=== PATIENT | male | born 1985 ===

== ENCOUNTER 2023-01-14 10:38 | Outpatient (AMB) | payer OTHER, SELFPAY ==
--- NOTE | 2023-01-14 10:38 | A.OFFPC_ITS ---
Vital Signs 01/14/23 10:40 Height 6 ft 2 in Weight 233 lb BMI 29.9 BP 124/80 Blood Pressure Location Rt brachial Position Sitting Pulse 82 Pulse Source Pulse Oximeter Pulse Oximetry (%) 98 Oxygen Delivery Method Room Air Intake Visit Reasons: Health Care Assistant Request PE Intake Note: Patient is a new patient with concern of pain in his stomach for about a year, sometimes he gets diarrhea, he states. He states when his stomach hurts, his urine smells when his stomach hurts. Allergies No Known Allergies Allergy (Verified 01/14/23 10:44) Tobacco use date assessed: 01/14/23 Dental Screening Dental Screen Date: 01/14/23 Did you have a dental visit in the last 12 months?: Yes Did you have a dental problem in the last 6 months where you did not have access to dental care?: No Was dental information given to patient?: Patient has dentist HPI Health Care Assistant Request PE HPI Details New patient Prior PCP:?[place], [place] Last office visit/CPE: None Acute issue(s): Abdominal pain -RUQ pain associated with dehydration Chest pain PMHx: HLD, HTN, Back Pain SurgHx: None FHx: Mom: HTN, Dad: BP, HLD, EtOH SocHx: Nonsmoker. Smokless tobacco. 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 Patient Tobacco Use Status: Former Tobacco user e-Cigarette/Vaping Use: Never Used service: Yes Current occupational status: employed [employer] GI Reports abdominal pain Physical exam (Primary Care) Vital Signs: Last Vital Signs Pulse 82 01/14/23 10:40 BP 124/80 01/14/23 10:40 Pulse Ox 98 01/14/23 10:40 Oxygen Delivery Method Room Air 01/14/23 10:40 BMI result Body Mass Index 29.9 Tobacco/Smoking Status: Tobacco use Status Tobacco use date assessed 01/14/23 01/14/23 10:45 Patient Tobacco Use Status Former Tobacco user 01/14/23 10:45 e-Cigarette/Vaping Use Never Used 01/14/23 10:45 Assessment and Plan Assessment & Plan (1) Hyperlipidemia: Code(s): E78.5 - Hyperlipidemia, unspecified Plan: On?atorvastatin Check?lipid (2) Back pain: Code(s): M54.9 - Dorsalgia, unspecified Plan: Left?scapular?and?subscapular?back?pain This?appears?to?be?muscular?and?wraps?around?chest?to?upper?left?chest. Modifiable?painMo?modifiable?paindifiable pain that will likely benefit from PT (3) Chest pain: Code(s): R07.9 - Chest pain, unspecified Plan: Sharp?modifiable?pain?related?to?his?left?scapular?pain. PT as above?physical?therapy?as?above (4) Hypertension: Code(s): I10 - Essential (primary) hypertension Plan: Blood?pressure?is?controlled Goal?is?less?than?140/90 Continue?current?medication?regimen (5) Alcohol abuse: Code(s): F10.10 - Alcohol abuse, uncomplicated (6) Abdominal pain: Code(s): R10.9 - Unspecified abdominal pain Plan: Chronic?right?upper?quadrant?abdominal?pain?associated?with?foods?and?hydration? status Maintain?good?hydration Keep?his?symptoms?diary Try?soluble?fiber Patient?also?notes?that?some?cheeses?may?be?a?problem?and?he?will?try?lactase enzyme?as?well Referred?to?GI (7) Laboratory exam ordered as part of routine general medical examination: Code(s): Z00.00 - Encounter for general adult medical examination without abnormal findings Plan: Check?labs Orders: Orders Comprehensive [place]. Panel Fast Today Z00.00 - Encounter for general adult medical examination without abnormal findings CT NG by PCR Today Z11.3 - Encounter for screening for infections with a predominantly sexual mode of transmission Syphilis Screen Today Z11.3 - Encounter for screening for infections with a predominantly sexual mode of transmission UA and rflx microscopic Today Z00.00 - Encounter for general adult medical examination without abnormal findings TSH reflex Free T4 Today Z00.00 - Encounter for general adult medical examination without abnormal findings PT Evaluation and Treatment Today M54.9 - Dorsalgia, unspecified Hepatitis B,C Profile Today Z11.3 - Encounter for screening for infections with a predominantly sexual mode of transmission HIV Ab/Ag Today Z11.3 - Encounter for screening for infections with a predominantly sexual mode of transmission Lipid Panel Today Z00.00 - Encounter for general adult medical examination without abnormal findings Microalbumin, Random (w Creat) Today I10 - Essential (primary) hypertension Complete Blood Count Auto Diff Today Z00.00 - Encounter for general adult medical examination without abnormal findings Referrals Addiction Medicine Referral F10.10 - Alcohol abuse, uncomplicated, Z81.1 - Family history of alcohol abuse and dependence Gastroenterology Referral R10.9 - Unspecified abdominal pain Medications: New atorvastatin 20 mg PO DAILY 90 days 90 tabs 3RF calcium polycarbophil (FiberCon) 625 mg PO DAILY 30 tabs 2RF 30 days lisinopril 30 mg PO DAILY 90 days 90 tabs 3RF Coding Level of Care Code New Pt Level 3 (25086) Diagnoses Hyperlipidemia E78.5 Back pain M54.9 Chest pain R07.9 Hypertension I10 Alcohol abuse F10.10 Abdominal pain R10.9 Laboratory exam ordered as part of routine general medical examination Z00.00
[2023-01-14 10:40] VITALS: BP 124/80; PULSE 82; O2SAT 98; BMI 29.9
== END 2023-01-14 11:18 | disposition home or self-care (01) ==
LOC: HO.HMGFM 10:39
PROVIDERS: PCP Family Medicine; Visit Provider Family Medicine
DX: E78.5 Hyperlipidemia, unspecified (principal); M54.9 Dorsalgia, unspecified; R07.9 Chest pain, unspecified; I10 Essential (primary) hypertension; F10.10 Alcohol abuse, uncomplicated; R10.9 Unspecified abdominal pain; Z00.00 Encounter for general adult medical examination without abnormal findings
CPT/HCPCS: 99203

== ENCOUNTER 2023-01-18 14:21 | Outpatient (AMB) | payer OTHER, SELFPAY ==
--- NOTE | 2023-01-18 14:24 | MHC.OFFVIS ---
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 Pt reports he has a who is that does not live with him. Pt reports he has friends for a support system, and has regular transportation. 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 Pt reports he drinks daily, reports he alternately drinks beer or hard alcohol. Hard alcohol he drinks 1/3 of a fifth of vodka nightly Beer he reports he drinks 12-18 nightly. Denies history of complicated withdrawal, denies need to drink in the morning to stop shakes. Reports he drinks nightly due to poor sleep, and that his goal is to not drink everyday. Pt hoping to one day resume drinking socially. Pt reports using tobacco dip once or twice nightly when he drinks. Denies any other substance use. 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 Last stretch was for a month in October. Denies treatment history, has never been to detox, residential, or used MAT before. Has no providers, declining any referrals at this time. Maybe down the road once I back off the drinking Denies mental health history, or inpatient psychiatric hospitalizations. Endorses history of passive self harm thoughts, attributes those to times when he and his were not getting along. Denies current thoughts of self harm. Medical History: Patient reports he is currently being treated for HTN and hyperlipidemia. Reports chronic pain to his back and joints that he attributes to the . States he is going to be starting PT. [facility] Social History Housing: Other Housing Other:: [place] Patient Tobacco Use Status: Former Tobacco user e-Cigarette/Vaping Use: Never Used service: Yes Current occupational status: employed [employer] Reports as per HPI and Reports no additional complaints Psych Reports abnormal sleep pattern Physical Exam Vital Signs: Last Vital Signs Pulse 93 01/18/23 14:33 BP 122/84 01/18/23 14:33 Pulse Ox 98 01/18/23 14:33 Oxygen Delivery Method Room Air 01/18/23 14:33 Const General: cooperative, healthy appearing and no acute distress Nutritional Appearance: average body habitus and well nourished Orientation/consciousness: patient oriented x3 Limitations: no limitations Resp Effort & Inspection: normal respiratory effort Skin General skin exam: no rashes or lesions noted Neuro General: patient oriented x3 Psych Appearance: grossly normal and well kempt Mental Status: mental status grossly normal Speech and movement: Normal speech and movement present Attitude: cooperative Assessment & Plan Assessment & Plan (1) Alcohol use disorder, moderate, dependence: Code(s): F10.20 - Alcohol dependence, uncomplicated Plan: Discussed DANIELE with patient and provided resource sheet about medications to patient. Discussed harm reduction. Discussed alcolhol withdrawal, symptoms and timeline, provided educational handout addressing alcohol withdrawal. Discussed how important it is not to abruptly stop drinking. Plan for pt to start measuring and recording daily alcohol intake for review at next visit. Trazodone once daily at bedtime as needed for sleep, discussed risks of mixing sleeping meds and alcohol. Naltrexone once daily. Follow up in one week to check in. Plan reviewed with GLENROY Marroquin Medications: New naltrexone Take half a tab daily for three days, then increase to one tab daily. 50 mg PO DAILY 30 tabs 0RF trazodone 50 mg PO BEDTIME PRN 14 tabs 0RF sleep Coding Level of Care Code New Pt Level 4 (82415) Diagnoses Alcohol use disorder, moderate, dependence F10.20
[2023-01-18 14:33] VITALS: BP 122/84; PULSE 93; O2SAT 98
== END 2023-01-18 16:29 | disposition home or self-care (01) ==
PROVIDERS: PCP Family Medicine; Visit Provider Nurse Practitioner Family
DX: F10.20 Alcohol dependence, uncomplicated (principal)
CPT/HCPCS: 99204

== ENCOUNTER → 2023-01-18 14:21 | Outpatient (BNVA) | payer OTHER, SELFPAY | PROVIDERS: PCP Family Medicine; Visit Provider Nurse Practitioner Psychiatric/Mental Health ==

== ENCOUNTER 2023-01-26 14:00 | Outpatient (AMB) | payer OTHER, SELFPAY ==
--- NOTE | 2023-01-26 14:02 | MHC.OFFVIS ---
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 Reports he is doing well with cutting down his alcohol use, has been measuring his daily intake. States when he started last week he was at 2.5 cups, and is now down to under 1 cup of vodka daily. States he has been trying to stick to the same kind of alcohol, only had beer once since beginning the medications and felt as though it made the beer taste like iron. States he has only been taking 25 mg of naltrexone, and feels as if this dose works well for him. Pt wishes to continue the PO naltrexone while he tapers of alcohol, is not interested in the vivitrol injection at this time. Reports he is working on his relationship with his , and that this has been good for him. [facility] Social History Housing: Other Housing Other:: [facility] Patient Tobacco Use Status: Former Tobacco user e-Cigarette/Vaping Use: Never Used service: Yes Current occupational status: employed [employer] Reports as per HPI and Reports no additional complaints Physical Exam Vital Signs: Last Vital Signs Pulse 74 01/26/23 14:07 BP 110/70 01/26/23 14:07 Pulse Ox 97 01/26/23 14:07 Oxygen Delivery Method Room Air 01/26/23 14:07 Const General: cooperative, healthy appearing and no acute distress Resp Effort & Inspection: normal respiratory effort Psych Appearance: grossly normal and well kempt Mental Status: mental status grossly normal Speech and movement: Normal speech and movement present Affect: normal affect Attitude: cooperative Thought content: Normal thought content present Judgement: Good judgement present (Psych) Assessment & Plan Assessment & Plan (1) Alcohol use disorder, moderate, dependence: Comment: Continue naltrexone 25mg Discussed sleep hygiene Discussed risk reduction, and reminded pt not to decrease his use too quickly. Pt to complete his labwork before next visit. Follow up one week. Code(s): F10.20 - Alcohol dependence, uncomplicated Coding Level of Care Code Est Pt Level 4 (76747) Diagnoses Alcohol use disorder, moderate, dependence F10.20
[2023-01-26 14:07] VITALS: BP 110/70; PULSE 74; O2SAT 97
== END 2023-01-26 14:35 | disposition home or self-care (01) ==
PROVIDERS: PCP Family Medicine; Visit Provider Nurse Practitioner Family
DX: F10.20 Alcohol dependence, uncomplicated (principal)
CPT/HCPCS: 99214

== ENCOUNTER → 2023-01-26 14:00 | Outpatient (BNVA) | payer OTHER, SELFPAY | PROVIDERS: PCP Family Medicine; Visit Provider Nurse Practitioner Family | DX: F10.20 Alcohol dependence, uncomplicated (principal) | CPT/HCPCS: 99212 ==

== ENCOUNTER 2023-01-27 12:19 | Outpatient (REF) | payer OTHER, SELFPAY ==
[2023-01-27 14:42] LABS: Appearance Urine Turbid; Color Urine Yellow; Glucose Urine UA Negative (Negative); Leukocyte Esterase Urine Negative (Negative); Nitrite Urine Negative (Negative); PH 5.5 (5.0-9.0); Specific Gravity - Urine 1.015 (1.005-1.025); Urine Blood Negative (Negative); Urine Ketones Negative (Negative); Urine Protein Negative (Neg-Trace)
[2023-01-27 14:56] LABS: MANUAL DIFF FLAG NO
[2023-01-27 15:04] LABS: Basophils Absolute Auto 0.1 X10*3/uL (0.0-0.2); Basophils Percent Auto 0.8 % (0-2); Eosinophils Absolute Auto 0.2 X10*3/uL (0.0-0.4); Eosinophils Percent Auto 2.5 % (0-4); Hematocrit 42.2 % (42.0-52.0); Hemoglobin 14.4 g/dl (14.0-18.0); Imm Gran Abs Auto 0.02 X10*3/uL (0.00-0.03); Imm Gran Pct Auto 0.3 % (0.0-0.4); Lymphocytes Absolute Auto 2.2 X10*3/uL (1.2-4.9); Lymphocytes Percent Auto 31.3 % (20-40); Mean Corpuscular HGB Conc 34.1 g/dl (31.0-36.0); Mean Corpuscular Hemoglobin 28.8 pg (27.0-33.0); Mean Corpuscular Volume 84.4 fL (80.0-98.0); Mean Platelet Volume 10.2 fL (9.4-12.4); Monocytes Absolute Auto 0.9 X10*3/uL (0.1-1.2); Monocytes Percent Auto 13.3 % (2-11); Neutrophils Absolute Auto 3.7 x10*3/uL (2.0-8.3); Neutrophils Percent Auto 51.8 % (45-73); Platelet Count 216 X10*3/uL (160-400); Red Cell Distribution Width 13.1 % (11.0-16.0); White Blood Count 7.1 X10*3/uL (4.8-10.8)
[2023-01-27 15:32] LABS: Alanine Aminotransferase 25 U/L (0-40); Albumin Level 4.5 g/dL (3.5-5.0); Alkaline Phosphatase 70 U/L (39-117); Anion Gap 15 (12-20); Aspartate Amino Transferase 21 U/L (5-37); Bilirubin Total 0.7 mg/dL (0.0-1.0); Blood Urea Nitrogen 11 mg/dL (9-16); Calcium 9.4 mg/dL (8.4-10.2); Carbon Dioxide 27 mmol/L (22-29); Chloride 101 mmol/L (96-108); Cholesterol 178 mg/dL (<200); Creatinine Urine 133.32 mg/dL; Estimated Glomerular Filt Rate > 60; Glucose Fasting 84 mg/dL (60-99); HDL Cholesterol 55 mg/dL (>40); LDL Cholesterol Calculated 88 mg/dL (<100); Microalbum/Creatinine Ratio Ur 7.5 ug/mg cr (<30); Potassium 4.7 mmol/L (3.3-5.1); Sodium 138 mmol/L (135-145); Total Protein 7.7 g/dL (6.5-8.0); Triglycerides 177 mg/dL (<150)
[2023-01-27 15:51] LABS: TSH reflex Free T4 0.96 uIU/mL (0.32-4.0)
[2023-01-28 04:15] LABS: Syphilis Screen Nonreactive (Nonreactive)
[2023-01-28 04:48] LABS: HBS Num1 > 1000.00 mIU/mL (0-7.99); HBc Num1 0.04 S/CO (0.00-0.79); HBsAGNum1 0.38 S/CO (0.00-0.99); HIV AB/AG Nonreactive (Nonreactive); HIV Num 1 0.04 S/CO (0.00-0.99); Hepatitis B Core Antibody Nonreactive (Nonreactive); Hepatitis B Surface Antigen Negative (Negative); ~HepC Num1 0.06 S/CO (0.00-0.79); ~Hepatitis B Surface Antibody REACTIVE (Nonreactive); ~Hepatitis C Antibody Nonreactive (Nonreactive)
== END 2023-01-27 12:20 | disposition home or self-care (01) ==
LOC: HO.WFDLDS 12:19
PROVIDERS: Visit Provider Family Medicine
DX: Z00.00 Encounter for general adult medical examination without abnormal findings (principal); I10 Essential (primary) hypertension; Z20.2 Contact with and (suspected) exposure to infections with a predominantly sexual mode of transmission
CPT/HCPCS: 36415; 80053; 80061; 81003; 82043; 82570; 84443; 85025; 86704; 86706; 86780; 86803; 87340; 87389

== ENCOUNTER 2023-01-28 14:00 | Outpatient (RCR) | payer OTHER, SELFPAY ==
--- NOTE | 2023-01-25 15:05 | MHC.PT.EP ---
[facility] [place] Office [place] [facility] [place] Office [address] [phone] F: [phone] F: [phone] F: [phone] F: [phone] Physical Therapy Plan of Care Date of Evaluation: 01/25/23 Date of Surgery: none Diagnosis: low back pain Assessment: Patient is a 37 year old R handed male who presents with s/s consistent with low back pain. 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 Patient past medical history is unremarkable. Current impairments include pain, posture, ROM, flexibility, strength, activity tolerance and functional mobility. Functional limitations include decreased ability to bend, lift, sleep, turn and rotate. Patient is motivated with good rehab potential. Skilled PT will address impairments and functional limitations in order to achieve goals. Frequency and Duration: The patient will be seen 2x/week for 5 weeks Short Term Goals: I with HEP - 2 weeks AROM 100% Rotation - 3 weeks TTP absent - 3 weeks Petrographer Goals: Return to all work duties pain free - 5 weeks Oswestry 10% or less - 5 weeks Able to sleep pain free - 5 weeks Treatment Plan: Modalities to reduce pain, spasms and effusion. Manual therapy to restore motion and function. Therapeutic exercise to improve strength and flexibility. Neuromuscular re-education for posture and balance. Therapeutic activities to return to functional activities of daily living. Electronically signed by: Eliecer Sánchez, PT Please sign and return to therapist. Thank you for your referral.
--- NOTE | 2023-04-20 08:36 | MHC.PT.DC ---
[facility] [place] Office [place] Office [place] Office [address] Frantz Pena [address] [phone] F: [phone] F: [phone] F: [phone] F: [phone] Physical Therapy Discharge Report Diagnosis: low back pain Date of Surgery: none Date of Evaluation: 01/25/23 Date of Discharge: 02/24/23 Treatments to Date: 2 Cancellations to Date: No Shows to Date: Discharge Status: Patient Elected to Stop Discharge Summary: Pt elected to stop after 2nd appt. 01/28/23: pt progressing well with skilled PT. improved tolerance to activity, STM, and stretching. IFC to finish. assess response and progress accordingly. issue HEP when ready. Patient is a 37 year old R handed male who presents with s/s consistent with low back pain. 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 Patient past medical history is unremarkable. Current impairments include pain, posture, ROM, flexibility, strength, activity tolerance and functional mobility. Functional limitations include decreased ability to bend, lift, sleep, turn and rotate. Patient is motivated with good rehab potential. Skilled PT will address impairments and functional limitations in order to achieve goals. Electronically signed by: Eliecer Sánchez, PT Please sign and return to therapist. Thank you for your referral.
== END 2023-04-20 08:38 | disposition home or self-care (01) ==
LOC: HO.PTCHIC 14:00
PROVIDERS: PCP Family Medicine; Visit Provider Family Medicine
DX: M54.9 Dorsalgia, unspecified (principal)
CPT/HCPCS: 97014; 97110; 97140; 97161

== ENCOUNTER 2023-03-10 15:16 | Outpatient (REF) | payer OTHER, SELFPAY ==
[2023-03-10 18:02] LABS: C Reactive Protein < 0.10 mg/dL (< or = 0.50); Lipase 10 U/L (8-78)
[2023-03-10 18:38] LABS: Folate 11.4 ng/mL (> or = 4.0); Vitamin B12 420 pg/mL (200-900)
[2023-03-16 18:35] LABS: Vitamin D 25-OH, D2 <4 ng/mL; Vitamin D 25-OH, D3 24 ng/mL; Vitamin D 25-OH, Total 24 ng/mL (30-100)
== END 2023-03-10 15:17 | disposition home or self-care (01) ==
LOC: HO.LAB 15:16
PROVIDERS: PCP Family Medicine; Visit Provider Nurse Practitioner Family
DX: I10 Essential (primary) hypertension (principal); R10.10 Upper abdominal pain, unspecified; K58.2 Mixed irritable bowel syndrome; R14.0 Abdominal distension (gaseous); E55.9 Vitamin D deficiency, unspecified; E78.5 Hyperlipidemia, unspecified
CPT/HCPCS: 36415; 82306; 82607; 82746; 83690; 86140; 99202

== ENCOUNTER 2023-03-10 15:16 | Outpatient (AMB) | payer OTHER, SELFPAY ==
--- NOTE | 2023-03-10 15:20 | A.OFFVIS_ITS ---
Intake Vital Signs 03/10/23 15:24 Height 6 ft 2 in Weight 231 lb 7.766 oz BMI 29.7 BP 150/83 H Blood Pressure Location Lt brachial Position Sitting Pulse 70 Intake Visit Reasons: Abdominal Pains Intake Note: Marcelo presents in the office as a new patient for abdominal pains. CC: He states that he has pains in his stomach and he mostly has diarrhea. No blood when he has a BM. Special Events Coordinator Required: No Allergies No Known Allergies Allergy (Verified 03/10/23 15:25) HPI Abdominal Pains HPI Details 37-year-old male with past medical histo ry of alcohol use, hypertension, hyperlipidemia is here today for initial consultation. Patient was sent to us for evaluation of his GI concerning symptoms. Patient reports right upper quadrant and left upper quadrant pain. Patient states that this pain is not associated that to meals usually happens 1-2 hours after he eats. Patient also reports that he will wake up in the morning having this pain. Patient reports that he moves his bowels usually his bowels are more on the loose side. He believes that he is not constipated. Patient reports that he does not empty his bowels completely when he has a 1st bowel movement. Patient goes to the bathroom couple times a day with soft stools. Patient tried fiber supplement before, however reports that it was not helpful. Did not notice much of a difference. Patient does not have any diet restrictions or limitations. Patient has history ETOH use, however patient has not been drinking alcohol for the last couple of months. Patient denies any nausea or vomiting. Denies any dyspepsia, dysphagia or odynophagia. Denies any melena, hematochezia, unintentional weight loss or ribbon like stools. Patient not aware of family history of Crohn's or ulcerative colitis. [facility] Social History Housing: Other Housing Other:: [facility] Patient Tobacco Use Status: Former Tobacco user e-Cigarette/Vaping Use: Never Used service: Yes Current occupational status: employed [employer] Denies weight gain and Denies weight loss ENT Reports no additional complaints, Denies dysphagia and Denies odynophagia Card Reports no additional complaints Resp Reports no additional complaints GI Denies abdominal pain, Denies belching, Denies melena, Denies bloating, Denies change in bowel habits, Denies dysphagia, Denies excessive flatus, Denies dyspepsia, Denies heartburn, Denies diarrhea, Denies loose stools, Denies nausea, Denies odynophagia and Denies vomiting Reports no additional complaints Musc Reports no additional complaints Neuro Reports no additional complaints Psych Reports no additional complaints Endo Reports no additional complaints Physical Exam Vital Signs: Last Vital Signs Pulse 70 03/10/23 15:24 BP 150/83 H 03/10/23 15:24 BMI result Body Mass Index 29.7 Const General: healthy appearing, no acute distress and well developed Nutritional Appearance: obese Orientation/consciousness: patient oriented x3 HEENT Head: Yes normal to inspection, Yes normocephalic and Yes atraumatic Face and sinus: Yes normal facial exam Mouth: Normal oral and palatal mucosa present Throat: Yes posterior oropharynx normal, Yes tonsils normal and Yes uvula midline Eyes General: appearance normal, both eyes and all related structures Neck Neck: Yes normal visual inspection, Yes full ROM and Yes trachea midline Thyroid: Thyroid normal Resp Effort & Inspection: normal respiratory effort, able to speak in complete sentences, no tracheal deviation and symmetric chest movement Auscultation: clear to auscultation bilaterally Cardio Rate: regular rate GI Inspection: Yes normal to inspection, No distended and Yes obesity Palpation (GI): Soft to palpation, not firm, nontender and No hepatosplenomegaly present Auscultation: normal bowel sounds General: Yes no CVA tenderness Back/Spine/Pelvis Back: no CVA tenderness Skin General skin exam: elasticity normal, turgor normal and dry skin Neuro General: patient oriented x3 Psych Appearance: grossly normal Mental Status: mental status grossly normal Affect: normal affect Assessment & Plan Assessment & Plan (1) Abdominal pain: Code(s): R10.9 - Unspecified abdominal pain Qualifiers: Abdominal location: upper abdomen, unspecified Qualified Code(s): R10.10 - Upper abdominal pain, unspecified (2) IBS (irritable bowel syndrome): Code(s): K58.9 - Irritable bowel syndrome without diarrhea Qualifiers: Irritable bowel syndrome type: with both diarrhea and constipation Qualified Code(s): K58.2 - Mixed irritable bowel syndrome (3) Abdominal bloating: Code(s): R14.0 - Abdominal distension (gaseous) Plan Will rule out malabsorption, pancreatitis. If CRP positive patient will be sent to check for fecal calprotectin to rule out IBD. Will send patient for ultrasound, however I do not believe that this is related to food so unlikely biliary colic, cholelithiasis, cholecystitis. For possible chronic pancreatitis due to history of alcohol use, will check lipase. Most likely patient does not empty his bowels completely. Symptoms happen 1-2 hours after eating with abdominal bloating. Possibility gas trapping in splenic and hepatic flexure. Patient will need to move his bowels completely periods start Citrucel in the morning and senna in the evening. Low FODMAP diet discussed with patient. That could also contribute to his symptoms due to for mentation processes with high FODMAP food. List of food recommended as well as a stool food to avoid given to patient. I will see patient in 3 months, sooner on as needed basis. Patient is agreeable to this plan and verbalizes understanding of instructions. He was given the opportunity to ask questions all questions answered. Thank you for allowing me to participate in his care Orders: Orders Vitamin B12 and Folate Today R19.7 - Diarrhea, unspecified Vitamin D 25-OH (D2 and D3) Today E55.9 - Vitamin D deficiency, unspecified C Reactive Protein Today K58.9 - Irritable bowel syndrome without diarrhea US abdomen complete Today R10.9 - Unspecified abdominal pain Lipase Today R10.9 - Unspecified abdominal pain Medications: New methylcellulose (laxative) (Citrucel) take it with full glass of water 500 mg PO DAILY 30 tabs 2RF K59.00 - Constipation, unspecified sennosides (Natural Senna Laxative) 17.2 mg (2 x 8.6 mg) PO BEDTIME 60 tabs 3RF constipation K59.00 - Constipation, unspecified Discontinued calcium polycarbophil (FiberCon) Discontinued Reason: Doctor's Order 625 mg PO DAILY 30 days 30 tabs 2RF Coding Level of Care Code New Pt Level 4 (52015) Diagnoses Pain of upper abdomen R10.10 Abdominal location: upper abdomen, unspecified Irritable bowel syndrome with both constipation and diarrhea K58.2 Irritable bowel syndrome type: with both diarrhea and constipation Abdominal bloating R14.0 Time Spent (min) 45 Comment 30 minutes spent with patient and additional 15 minutes spent reviewing his records
[2023-03-10 15:24] VITALS: BP 150/83; PULSE 70; BMI 29.7
== END 2023-03-10 15:55 | disposition home or self-care (01) ==
PROVIDERS: PCP Family Medicine; Visit Provider Nurse Practitioner Family
DX: R10.10 Upper abdominal pain, unspecified (principal); K58.2 Mixed irritable bowel syndrome; R14.0 Abdominal distension (gaseous)
CPT/HCPCS: 99204

== ENCOUNTER 2023-03-19 11:08 | Outpatient (AMB) | payer OTHER, SELFPAY ==
--- NOTE | 2023-03-19 11:18 | A.OFFPC_ITS ---
Vital Signs 03/19/23 11:19 Height 6 ft 2 in Weight 234 lb 6 oz BMI 30.1 BP 132/82 Blood Pressure Location Lt brachial Position Sitting Respiration 16 Pulse 85 Pulse Source Pulse Oximeter Pulse Oximetry (%) 97 Oxygen Delivery Method Room Air Intake Visit Reasons: CPE with f/u labs and health maint. Intake Note: Patient is here for physical and labs review and health maintenance. Patient is c/o tinnitis in both ears for 2 weeks. Allergies No Known Allergies Allergy (Verified 03/19/23 11:21) Medication List - Last Reconciled 03/19/23 by Aj Monroy MD atorvastatin 40 mg PO DAILY cholecalciferol (vitamin D3) 50 mcg PO DAILY 90 days lisinopril 30 mg PO DAILY 90 days methylcellulose (laxative) (Citrucel) 500 mg PO DAILY naltrexone 50 mg PO DAILY sennosides (Natural Senna Laxative) 17.2 mg (2 x 8.6 mg) PO BEDTIME trazodone 50 mg PO BEDTIME PRN Tobacco use date assessed: 03/19/23 HPI CPE with f/u labs and health maint. HPI Details 37 y/o male presents for a CPE with f/u labs and health maintenance. Labs were drawn 01/27/23. Reviewed labs with pt. Triglycerides 177. TC 178. LDL 88. HDL 55. He is on artovastatin 40mg daily. Vitamin D low at 24 ng/mL. Blood pressure today 132/82. He is on lisinopril 30mg daily. Pt reports tinnitus bilateral ears. [facility] Social History Housing: Other Housing Other:: [facility] Patient Tobacco Use Status: Former Tobacco user e-Cigarette/Vaping Use: Never Used service: Yes Current occupational status: employed Cognitive needs: No Hearing needs: No Vision needs: Yes (Patient wears glasses.) Questionnaire PHQ-9 Over the last 2 weeks, how often have you been bothered by any of the following problems? 1. Little interest or pleasure in doing things: not at all 2. Feeling down, depressed, or hopeless: not at all 3. Trouble falling or staying asleep, or sleeping too much: not at all 4. Feeling tired or having little energy: not at all 5. Poor appetite or overeating: not at all 6. Feeling bad about yourself - or that you are a failure or have let yourself or your family down: not at all 7. Trouble concentrating on things, such as reading the newspaper or watching television: not at all 8. Moving or speaking so slowly that other people could have noticed. Or the opposite - being so fidgety or restless that you have been moving around a lot more than usual: not at all 9. Thoughts that you would be better off or of hurting yourself in some way: not at all Total score: 0 Depression Screening Interpretation: Negative Depression Screening Done: Yes Source: Developed by Drs. Stephon Hammond, Krystyna Sands, Billy Terry and colleagues, with an educational dex from [employer]. Thrive Questionnaire Date Thrive assessed: 03/19/23 I am a: Patient What is your living situation today?: I have a steady place to live Within the past 12 months, did the food you bought not last and you didn't have the money to get more?: Never true Within the past 12 months, did you worry whether your food would run out before you got money to buy more?: Never true Do you have trouble paying for medicines?: No Do you have trouble getting transportation to medical appointments?: No Do you have trouble paying your heating and electricity bill?: No Do you have trouble taking care of your child, family member or friend?: No Do you have trouble with day-to-day activities such as bathing, preparing meals, shopping, managing finances, etc.?: No Are you currently unemployed and looking for a job?: No Are you interested in more education?: No AUDIT C Alcohol Use Questionnaire (AUDIT-C) 1. How often do you have a drink containing alcohol?: 2-4 times a month 2. How many drinks containing alcohol do you have on a typical day when you are drinking?: 1 or 2 3. How often do you have six or more drinks on one occasion?: Never Total Score: 2 JENNIFER-7 AMB Questionnaire JENNIFER-7 Date JENNIFER - 7 assessed: 03/19/23 Feeling nervous, anxious, or on edge: 0 = Not at all Not being able to stop or control worryin = Not at all Worrying too much about different things: 0 = Not at all Trouble relaxin = Not at all Being so restless that it is hard to sit still: 0 = Not at all Becoming easily annoyed or irritable: 0 = Not at all Feeling afraid as if something awful might happen: 0 = Not at all Total JENNIFER-7 score (0-4 normal; 5-9 mild; 10-14 moderate; 15-21 severe): 0 Source: Developed by Drs. Stephon Hammond, Krystyna Sands, Billy Terry and colleagues, with an educational dex from [employer]. Review of Systems Const Denies chills, Denies fatigue, Denies fever(s), Denies headache(s) and Denies weakness Eyes Denies change in vision ENT Denies dizziness, Denies headache(s), Denies hearing loss, Denies nasal congestion, Denies sinus pain, Denies sinus pressure and Denies sore throat Card Denies chest pain, Denies lightheadedness, Denies dyspnea and Denies other (palpitations) Resp Denies cough, Denies dyspnea and Denies wheezing GI Denies abdominal pain, Denies melena, Denies hematochezia, Denies change in bowel habits, Denies dyspepsia and Denies nausea Denies hematuria and Denies dysuria Musc Denies abnormal gait, Denies myalgias, Denies arthralgias, Denies numbness and Denies tingling Skin/Breast Denies rash, Denies unusual bruising and Denies wounds Neuro Denies abnormal gait, Denies dizziness, Denies headache(s), Denies memory loss, Denies numbness, Denies Sensory deficit (Neuro), Denies tingling and Denies weakness Psych Denies anxiety, Denies depression and Denies memory loss Endo Denies cold intolerance, Denies fatigue, Denies heat intolerance, Denies polydipsia and Denies polyuria Alfonso/Lymph Denies easy bleeding and Denies easy bruising Aller/Immun Denies wheezing Physical exam (Primary Care) Vital Signs: Last Vital Signs Pulse 85 03/19/23 11:19 Resp 16 03/19/23 11:19 BP 132/82 03/19/23 11:19 Pulse Ox 97 03/19/23 11:19 Oxygen Delivery Method Room Air 03/19/23 11:19 BMI result Body Mass Index 30.1 Tobacco/Smoking Status: Tobacco use Status Tobacco use date assessed 03/19/23 03/19/23 11:24 Patient Tobacco Use Status Former Tobacco user 03/19/23 11:24 e-Cigarette/Vaping Use Never Used 03/19/23 11:24 PHQ-9: PHQ-9 Score PHQ-9: Total score 0 03/19/23 13:07 Depression Screening Interpretation: Negative Thrive Assessment: Date of Thrive Assessment Date Thrive assessed 03/19/23 03/19/23 11:31 Const General: no acute distress, well developed, alert and awake Nutritional Appearance: well nourished Orientation/consciousness: patient oriented x3 HENMT Head: Yes normocephalic and Yes atraumatic Ears: hearing grossly normal bilaterally and TM's normal bilaterally General nose exam: Normal external nose present and Normal nares present Mouth: Normal oral and palatal mucosa present and moist mucous membranes Teeth and gingiva: dentition normal Throat: Yes posterior oropharynx normal Eyes General: appearance normal, both eyes and all related structures Pupils: Equal, round and reactive pupils present and Pupil accommodation reflex normal EOM: EOMs intact bilaterally Neck Neck: Yes normal visual inspection, Yes no lymphadenopathy and Yes trachea midline Thyroid: Thyroid normal Carotids: no bruits Lymphatic: no lymphadenopathy noted Chest Chest palpation & inspection: normal inspection of the chest Resp Effort & Inspection: normal respiratory effort Auscultation: clear to auscultation bilaterally Cardio Rate: regular rate Rhythm: regular rhythm Heart sounds: S1 normal heart sound present, S2 normal heart sound present, no gallops, no murmurs and no rubs Bruits: no abdominal aortic bruits and no carotid bruits GI Palpation (GI): No Abdominal aortic bruit present, Soft to palpation, nontender, No hepatosplenomegaly present and No Rebound tenderness present Auscultation: normal bowel sounds General: Yes no CVA tenderness Back/Spine/Pelvis Back: no CVA tenderness Cervical Spine: cervical ROM normal and No Cervical spine tenderness Thoracic/Lumbar Spine: thoraco-lumbar ROM normal, No pain with thoraco-lumbar ROM, No thoracic spinal tenderness and No lumbar spinal tenderness Skin Lesions: no lesions Rashes: no rashes Trauma: no lacerations or abrasions Wounds: no wounds Nails: normal Neuro General: patient oriented x3 Cranial nerves: Yes Equal, round and reactive pupils present Cognition (Neuro): normal cognition Gait exam (Neuro): Normal gait present Motor exam (neuro): 5/5 motor strength present throughout Sensory Exam: No Sensory deficit (Neuro) Deep tendon reflexes (DTR's): Right patellar reflex intensity grade: 2+ and Left patellar reflex intensity grade: 2+ Extrem General: Yes normal to inspection and No edema Psych Appearance: grossly normal Affect: normal affect Attitude: cooperative Thought process: Normal thought process present Assessment and Plan Assessment & Plan (1) Adult general medical exam: Code(s): Z00.00 - Encounter for general adult medical examination without abnormal findings Plan: 37-year-old?male?presents?for?complete?physical?exam Encouraged?healthy?diet?with?active?lifestyle?and?plenty?of?exercise (2) Low vitamin D level: Code(s): R79.89 - Other specified abnormal findings of blood chemistry Plan: Start?vitamin-D?supplement (3) Alcohol use disorder, moderate, dependence: Code(s): F10.20 - Alcohol dependence, uncomplicated Plan: Followed?by?GI?and?also?addiction?medicine (4) Back pain: Code(s): M54.9 - Dorsalgia, unspecified Plan: Had?been?improving?with?physical?therapy. Continue?physical?therapy (5) Hyperlipidemia: Code(s): E78.5 - Hyperlipidemia, unspecified Plan: Mild?elevated?triglycerides.??His?other?lipids?are?controlled?on?atorvastatin Encouraged?diet?low?in?saturated?fats?and?cholesterol (6) Hypertension: Code(s): I10 - Essential (primary) hypertension Plan: Blood?pressure?is?controlled?on?lisinopril?30?mg?daily Continue?current?medication (7) Tinnitus: Code(s): H93.19 - Tinnitus, unspecified ear Plan: Referred?to?[facility]?for?audiology Orders: Referrals Audiology Referral H93.19 - Tinnitus, unspecified ear Medications: New cholecalciferol (vitamin D3) 50 mcg PO DAILY 90 caps 1RF 90 days Coding Level of Care Code Tele Est Pt Level 3 (12006) Est Pt Prev Care 18-39y(35216) Diagnoses Adult general medical exam Z00.00 Low vitamin D level R79.89 Alcohol use disorder, moderate, dependence F10.20 Back pain M54.9 Hyperlipidemia E78.5 Hypertension I10 Tinnitus H93.19
[2023-03-19 11:19] VITALS: BP 132/82; PULSE 85; RESP 16; O2SAT 97; BMI 30.1
== END 2023-03-19 13:38 | disposition home or self-care (01) ==
PROVIDERS: PCP Family Medicine; Visit Provider Family Medicine
DX: Z00.00 Encounter for general adult medical examination without abnormal findings (principal); R79.89 Other specified abnormal findings of blood chemistry; F10.20 Alcohol dependence, uncomplicated; M54.9 Dorsalgia, unspecified; E78.5 Hyperlipidemia, unspecified; I10 Essential (primary) hypertension; H93.19 Tinnitus, unspecified ear
CPT/HCPCS: 99395

== ENCOUNTER 2023-04-08 12:56 | Outpatient (AMB) | payer OTHER, SELFPAY ==
--- NOTE | 2023-04-08 13:08 | MHC.AM.SUB ---
Intake Vital Signs 04/08/23 13:09 BP 128/78 Blood Pressure Location Rt brachial Position Sitting Pulse 92 Pulse Oximetry (%) 97 Oxygen Delivery Method Room Air Intake Visit Reasons: MAT Visit Allergies No Known Allergies Allergy (Verified 03/19/23 11:21) HPI MAT Visit HPI Details Pt presents for AUD treatment and follow up He reports significant decrease in alcohol intake since his last visit, he only has 1 beer if he drinks and reports he has drank maybe 7-8 days in the past 2.5 months. Last drink on (1 beer). He identifies stress as one of his typical triggers. He reports sleep has gotten much better and he is having an easier time falling asleep than previously. He feels as though the naltrexone affects his appetite in the sense of a meat aversion when he takes it regularly. T/w counseledpt to try taking half a pill to see if that alleviates his meat aversion. Patient reports he is overall feeling well, shared with his that he is working on his recovery and he reports she has been supportive. Denies any other concerns today. [facility] Social History Housing: Other Housing Other:: [facility] Patient Tobacco Use Status: Former Tobacco user e-Cigarette/Vaping Use: Never Used service: Yes Current occupational status: employed Cognitive needs: No Hearing needs: No Vision needs: Yes (Patient wears glasses.) Review of Systems Const Reports as per HPI Physical Exam Vital Signs: Last Vital Signs Pulse 92 04/08/23 13:09 BP 128/78 04/08/23 13:09 Pulse Ox 97 04/08/23 13:09 Oxygen Delivery Method Room Air 04/08/23 13:09 Const General: cooperative, healthy appearing and no acute distress Resp Effort & Inspection: normal respiratory effort Psych Appearance: grossly normal Mental Status: mental status grossly normal Speech and movement: Normal speech and movement present Affect: normal affect Attitude: cooperative Assessment & Plan Assessment & Plan (1) Alcohol use disorder, moderate, dependence: Code(s): F10.20 - Alcohol dependence, uncomplicated Plan: -Continue taking naltrexone, encouraged pt to take 25mg on the days he takes to improve appetite -Follow up in 4 weeks Medications: Refilled naltrexone Take half a tab daily for three days, then increase to one tab daily. 50 mg PO DAILY 30 tabs 1RF Coding Level of Care Code Est Pt Level 3 (21613) Diagnoses Alcohol use disorder, moderate, dependence F10.20
[2023-04-08 13:09] VITALS: BP 128/78; PULSE 92; O2SAT 97
== END 2023-04-08 13:21 | disposition home or self-care (01) ==
PROVIDERS: PCP Family Medicine; Visit Provider Nurse Practitioner Family
DX: F10.20 Alcohol dependence, uncomplicated (principal)
CPT/HCPCS: 99213

== ENCOUNTER → 2023-04-08 12:56 | Outpatient (BNVA) | payer OTHER, SELFPAY | PROVIDERS: PCP Family Medicine; Visit Provider Nurse Practitioner Family | DX: F10.20 Alcohol dependence, uncomplicated (principal) | CPT/HCPCS: 99212 ==

== ENCOUNTER 2023-06-01 12:29 | Outpatient (REF) | payer OTHER, SELFPAY | END 2023-06-01 12:30 | disposition home or self-care (01) | LOC: HO.SH 12:29 | PROVIDERS: Visit Provider Family Medicine | DX: H93.19 Tinnitus, unspecified ear (principal) | CPT/HCPCS: 92557; 92567; 92625 ==

== ENCOUNTER 2023-06-09 13:19 | Outpatient (AMB) | payer OTHER, SELFPAY ==
--- NOTE | 2023-06-09 13:37 | A.OFFVIS_ITS ---
Intake Vital Signs 06/09/23 13:49 Height 6 ft 2 in Weight 246 lb 0.574 oz BMI 31.6 BP 140/82 H Blood Pressure Location Lt brachial Position Sitting Pulse 65 Intake Visit Reasons: 3 month follow up Intake Note: Patient is seen in office for 3 month follow up visit, following IBS. Pt c/o: continued RUQ pain, been eating fiber with relief, some diarrhea after eating fatty foods, LUQ is doing well, denies nausea, vomit, constipation, denies any other GI issues Screening Specialist Required: No Accompanied by: Self / Same As Patient Allergies No Known Allergies Allergy (Verified 06/09/23 13:47) HPI 3 month follow up HPI Details LAST VISIT: Abdominal pain IBS (irritable bowel syndrome) Abdominal bloating Plan Will rule out malabsorption, pancreatitis. If CRP positive patient will be sent to check for fecal calprotectin to rule out IBD. Will send patient for ultrasound, however I do not believe that this is related to food so unlikely biliary colic, cholelithiasis, cholecystitis. Possible chronic pancreatitis due to history of alcohol use, will check lipase. Most likely patient does not empty his bowels completely. Symptoms happen 1-2 hours after eating with abdominal bloating. Possibility gas trapping in splenic and hepatic flexure. Patient will need to move his bowels completely periods start Citrucel in the morning and senna in the evening. Low FODMAP diet discussed with patient. That could also contribute to his symptoms due to for mentation processes with high FODMAP food. List of food recommended as well as a stool food to avoid given to patient. I will see patient in 3 months, sooner on as needed basis. Patient is agreeable to this plan and verbalizes understanding of instructions. He was given the opportunity to ask questions all questions answered. ? Thank you for allowing me to participate in his care Orders Orders Vitamin B12 and Folate Today R19.7 Vitamin D 25-OH (D2 and D3) Today E55.9 C Reactive Protein Today K58.9 US abdomen complete Today R10.9 Lipase Today R10.9 Medications New methylcellulose (laxative) (Citrucel) take it with full glass of water 500 mg PO DAILY 30 tabs 2RF K59.00 sennosides (Natural Senna Laxative) 17.2 mg (2 x 8.6 mg) PO BEDTIME 60 tabs 3RF constipation K59.00 Discontinued calcium polycarbophil (FiberCon) Discontinued Reason: Doctor's Order 625 mg PO DAILY 30 days 30 tabs 2RF TODAY'S VISIT Patient is here today for follow-up and to discuss lab results. Patient had normal labs except for mildly low vitamin-D. PCP send script for vitamin-D supplement. Patient has not gone for ultrasound yet. Will inquire today and see if we can schedule a. Patient will be leaving to go to [place] for 3 months end of this month for paternity leave. Patient denies any nausea or vomiting. His symptoms of acid reflux are better. Continues to have right upper quadrant discomfort postprandially. Occasional abdominal bloating depending on what he eats. Occasional dyspepsia without dysphagia or odynophagia. Denies melena, hematochezia, unintentional weight loss or ribbon like stools. [facility] Social History Housing: Other Housing Other:: [facility] Patient Tobacco Use Status: Former Tobacco user e-Cigarette/Vaping Use: Never Used service: Yes Current occupational status: employed Cognitive needs: No Hearing needs: No Vision needs: Yes (Patient wears glasses.) Review of Systems Const Denies weight gain and Denies weight loss ENT Reports no additional complaints, Denies dysphagia and Denies odynophagia Card Reports no additional complaints Resp Reports no additional complaints GI Reports abdominal pain (RUQ, occasional), Denies belching, Denies melena, Denies bloating, Denies change in bowel habits, Denies dysphagia, Denies excessive flatus, Denies dyspepsia, Denies heartburn, Denies diarrhea, Denies loose stools, Denies nausea, Denies odynophagia and Denies vomiting Reports no additional complaints Musc Reports no additional complaints Neuro Reports no additional complaints Psych Reports no additional complaints Endo Reports no additional complaints Physical Exam Vital Signs: Last Vital Signs Pulse 65 03/06/24 13:49 BP 140/82 H 06/09/23 13:49 BMI result Body Mass Index 31.6 Const General: healthy appearing, no acute distress and well developed Nutritional Appearance: obese Orientation/consciousness: patient oriented x3 Resp Effort & Inspection: normal respiratory effort, able to speak in complete sentences, no tracheal deviation and symmetric chest movement Auscultation: clear to auscultation bilaterally Cardio Rate: regular rate GI Inspection: Yes normal to inspection, No distended and Yes obesity Palpation (GI): Soft to palpation, not firm, nontender and No hepatosplenomegaly present Auscultation: normal bowel sounds General: Yes no CVA tenderness Back/Spine/Pelvis Back: no CVA tenderness Skin General skin exam: elasticity normal, turgor normal and dry skin Neuro General: patient oriented x3 Psych Appearance: grossly normal Mental Status: mental status grossly normal Results Reviewed Results Reviewed: Laboratory Tests 03/10/23 16:06 C-Reactive Protein < 0.10 Lipase 10 Vitamin B12 420 25-OH Vitamin D Total 24 L Folate 11.4 Assessment & Plan Assessment & Plan (1) Abdominal pain: Code(s): R10.9 - Unspecified abdominal pain Qualifiers: Abdominal location: upper abdomen, unspecified Qualified Code(s): R10.10 - Upper abdominal pain, unspecified (2) IBS (irritable bowel syndrome): Code(s): K58.9 - Irritable bowel syndrome without diarrhea Qualifiers: Irritable bowel syndrome type: with constipation Qualified Code(s): K58.1 - Irritable bowel syndrome with constipation (3) Abdominal bloating: Code(s): R14.0 - Abdominal distension (gaseous) (4) Constipation: Code(s): K59.00 - Constipation, unspecified Qualifiers: Constipation type: slow transit constipation Qualified Code(s): K59.01 - Slow transit constipation Plan Continue current diet. Avoid alcohol. Continue taking senna and Citrucel daily. Increase fluid intake and activity to promote better bowel motility. Avoid food that are high in fat and fried. Will call and schedule patient for ultrasound. I will see him in 6 months, sooner on as needed basis. Patient is agreeable to this plan and verbalizes understanding of instructions. He was given the opportunity to ask questions and all questions answered. Thank you for allowing me to participate in his care Medications: Refilled cholecalciferol (vitamin D3) 50 mcg PO DAILY 90 days 90 caps 1RF Coding Level of Care Code Est Pt Level 4 (93168) Diagnoses Pain of upper abdomen R10.10 Abdominal location: upper abdomen, unspecified Irritable bowel syndrome with constipation K58.1 Irritable bowel syndrome type: with constipation Abdominal bloating R14.0 Slow transit constipation K59.01 Constipation type: slow transit constipation Time Spent (min) 35 Comment 20 minutes spent with patient and additional 15 minutes spent reviewing his records
[2023-06-09 13:49] VITALS: BP 140/82; PULSE 65; BMI 31.6
== END 2023-06-09 14:08 | disposition home or self-care (01) ==
PROVIDERS: PCP Family Medicine; Visit Provider Nurse Practitioner Family
DX: R10.10 Upper abdominal pain, unspecified (principal); K58.1 Irritable bowel syndrome with constipation; R14.0 Abdominal distension (gaseous); K59.01 Slow transit constipation
CPT/HCPCS: 99214

== ENCOUNTER → 2023-06-09 13:19 | Outpatient (BNVA) | payer OTHER, SELFPAY | PROVIDERS: PCP Family Medicine; Visit Provider Nurse Practitioner Family | DX: K58.1 Irritable bowel syndrome with constipation (principal); K59.01 Slow transit constipation; R10.10 Upper abdominal pain, unspecified; R14.0 Abdominal distension (gaseous) | CPT/HCPCS: 99212 ==

== ENCOUNTER 2023-06-16 10:31 | Outpatient (REF) | payer OTHER, SELFPAY ==
--- NOTE | ~2023-06-16 | US_ITS ---
EXAMINATION: US ABDOMEN COMPLETE CLINICAL INFORMATION: Abdominal pain. COMPARISON: None available. TECHNIQUE: Real-time imaging of the abdominal viscera. FINDINGS: PANCREAS: The head and the body of the pancreas is homogeneous in echotexture. The tail is obscured by overlying gas. ABDOMINAL AORTA: The proximal, mid, and distal segments are normal in caliber. INFERIOR VENA CAVA: Visualized portions are normal. LIVER: Normal. The liver is normal in size. The liver contour is normal. Parenchymal echogenicity is normal. No focal hepatic lesion. There is no intrahepatic biliary duct dilatation seen. GALLBLADDER: The gallbladder is contracted. The gallbladder wall thickness is 0.4 cm. Patient had coughing femur prior to the exam. COMMON BILE DUCT: Normal in caliber measuring 0.39 cm in diameter. RIGHT KIDNEY: There is anechoic cyst midpole measuring 0.9 x 1.0 x 1.0 cm. No additional lesions seen. No hydronephrosis. No renal calculi or caliectasis seen. The Kidney measures 11.4 cm in maximum dimension. LEFT KIDNEY: There is normal cortical thickness No renal calculi there is small echogenic stone in the lower pole measuring 0.4 x 0.3 x 0.4 seen. No caliectasis or hydronephrosis seen. The kidney measures 11.5. cm in maximum dimension. SPLEEN: Normal. The spleen measures 12.0 cm in maximum dimension. FREE FLUID: None. US/US abdomen complete IMPRESSION: 1. Small anechoic cyst midpole right kidney. 2. Small echogenic stone lower pole left kidney without caliectasis or hydronephrosis. 3. Rest of the abdominal ultrasound is unremarkable.
== END 2023-06-16 10:32 | disposition home or self-care (01) ==
LOC: HO.HMGCX 10:31
PROVIDERS: PCP Family Medicine; Visit Provider Nurse Practitioner Family
DX: R10.9 Unspecified abdominal pain (principal)
CPT/HCPCS: 76700

== ENCOUNTER 2024-04-19 08:02 | Outpatient (AMB) | payer OTHER, SELFPAY ==
--- OUTSIDE RECORDS SUMMARY | 2024-04-19 08:05 | XMS_ITS | Continuity of Care Document ---
Author Name [facility] Organization [facility] Care Team Providers Care Supervisor Cutting Department Name Role Phone [facility] Unavailable Unavailable Problems Combined list of problems from Department of Defense and Veterans Affairs facilities. It does not include entries that were removed or entered in error. 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 DoD Essential (primary) hypertension Active 7 Condition DoD Myopia, [facility] for examination of eyes and vision with abnormal findings Active Condition [facility] Nicotine dependence, chewing tobacco, uncomplicated Active Condition DoD Other seasonal allergic rhinitis Active Condition DoD Aftercare Following Surgery Of Sense Organs Inactive Condition DoD postsurgical state of eye and adnexa Inactive Condition DoD refractive error Inactive Condition DoD visit for: preoperative exam Inactive Condition [facility] routine ophthalmological exam Inactive Condition DoD ganglion left hand Active Condition DoD lower back pain Active Condition DoD Patient Education - Injury Prevention Inactive Condition [facility] visit for: ears / hearing exam Inactive Condition [facility] visit for: administrative purpose Inactive Condition DoD astigmatism regular Inactive Condition D oD refractive error - myopia Inactive Condition [facility] visit for: new patient eye exam Active Condition [facility] visit for: services physical Inactive Condition DoD Vaccines Prophylactic Need Inactive Condition DoD Need For Vaccination Typhoid Inactive Condition DoD Need For Vaccination Hepatitis B Inactive Condition DoD skin disorders appendage hair follicle folliculitis Inactive Condition DoD Need For Prophylactic Antibiotics Inactive Condition DoD acute bronchitis Inactive Condition [facility] Medications Combined list of outpatient medications from Department of Defense and Veterans Affairs facilities.Medications provided include 1) outpatient medications from the last 15 months, and 2) patient-reported medications. Medication Details Route Status Patient Instructions Prescription Expires Prescription Number Last Dispense Date Ordering Provider Order Date Order Qty Source ATORVASTATI N CALCIUM (atorvastat in calcium), 40 MG, TABLET, ORAL, [facility] PHARMA I, 1000 ea. BOTTLE Cancele d [id number] : 2023 0 Pharmac y Data Transac tion Service Facilit y Cepacol Sore Throat Pain Relief Honey Lemon 15 mg-2.6 mg mucous membrane lozenge 1 lozenge( s), Oral, every 2 hr, PRN sore throat, # 16 EA, 0 total refill(s ), Acute, 04/16/22 11:00:00 PM JIG FITTER, Pharmacy : [facility] Oral (given by mouth) Complet ed 04/17/2022 16.0 [facility] chlorhexidi ne oral rinse 0.12% Liq [473mL] See Rx Instruct ions, Swish and Spit, BID, # 473 mL, 0 total refill(s ), Hard Stop Swish and Spit Discont inued 09/13/2020 473.0 Ambulat ory Pharmac y hydroCHLORO thiazide 12.5 mg oral tablet 1 tab(s), Oral, Daily, for blood pressure , # 90 tab(s), 0 total refill(s ), [facility], Pharmacy : [facility] Oral (given by mouth) Discont inued 10/15/2021 90.0 [facility] hydrocodone -acetaminop hen 5 mg-325 mg tablet See Rx Instruct ions, Oral, # 12 EA, 0 total refill(s ), Hard Stop Oral (given by mouth) Discont inued 09/13/2020 12.0 Ambulat ory Pharmac y ibuprofen 600 mg tablet 600 mg, Oral, every 6 hr, # 20 EA, 0 total refill(s ), Hard Stop Oral (given by mouth) Discont inued 09/13/2020 20.0 Ambulat ory Pharmac y Lipitor 40 mg oral tablet 1 tab(s), Oral, Daily, for choleste rol, # 90 tab(s), 3 total refill(s ), Hard Stop, Pharmacy : [facility] Oral (given by mouth) Complet ed 01/06/2022 90.0 [facility] Lipitor 40 mg oral tablet 1 tab(s), Oral, Daily, for choleste rol, # 90 tab(s), 3 total refill(s ), [facility], Pharmacy : [facility] Oral (given by mouth) Ordered 90.0 [facility] LISINOPRIL (lisinopril ), 30 MG, TABLET, ORAL, LUPIN PHARMACEU, 100 ea. BOTTLE Cancele d [id number] : 2023 0 Pharmac y Data Transac tion Service Facilit y lisinopril 10 mg oral tablet 1 tab(s), Oral, Daily, for blood pressure , # 90 tab(s), 3 total refill(s ), [facility], Pharmacy : [facility] Oral (given by mouth) Discont inued 10/15/2021 90.0 [facility] lisinopril 10 mg tablet See Instruct ions, Oral, # 270 EA, 0 total refill(s ), Hard Stop Oral (given by mouth) Complet ed 01/06/2023 270.0 Ambulat ory Pharmac y lisinopril 30 mg oral tablet 1 tab(s), Oral, Daily, for blood pressure , # 90 tab(s), 3 total refill(s ), Hard Stop, Pharmacy : [facility] Oral (given by mouth) Complet ed 01/06/2022 90.0 [facility] lisinopril 30 mg oral tablet 1 tab(s), Oral, Daily, for blood pressure , # 90 tab(s), 3 total refill(s ), [facility], Pharmacy : [facility] Oral (given by mouth) Ordered 90.0 [facility] NALTREXONE HCL (NALTREXONE HCL), 50 MG, TABLET, ORAL, [facility], 30 ea. BOTTLE Cancele d [id number] : 2023 0 Pharmac y Data Transac tion Service Facilit y NALTREXONE HCL (NALTREXONE HCL), 50 MG, TABLET, ORAL, [facility], 30 ea. BOTTLE Cancele d [id number] : 2023 0 Pharmac y Data Transac tion Service Facilit y NALTREXONE HCL (NALTREXONE HCL), 50 MG, TABLET, ORAL, [facility], 30 ea. BOTTLE Cancele d [id number] : 01/12/ 2024 0 Pharmac y Data Transac tion Service Facilit y NALTREXONE HCL (NALTREXONE HCL), 50 MG, TABLET, ORAL, SynthoxCA, 30 ea. BOTTLE Active [id number] 2023 30 Pharmac y Data Transac tion Service Facilit y penicillin V potassium 500 mg oral tablet 1 tab(s), Oral, TID, X 10 days, # 30 tab(s), 0 total refill(s ), Acute, 04/25/22 8:21:00 AM JIG FITTER, Pharmacy : [facility] Oral (given by mouth) Complet ed 04/25/2022 30.0 [facility] Allergies, Adverse Reactions, Alerts Combined list of allergies from Department of Defense and Veterans Affairs facilities. It does not include entries that were removed or entered in error. Substance Category Reaction Severity Reaction type Status Date Reported Comments Source No Known Allergies Drug allergy (disorder) active 07/10/2008 [facility] Immunizations Combined list of available immunizations from the Department of Defense and Veterans Affairs facilities. Immunization Series Date Given Administered By Site Reaction Lot Number CVX Code Drug Qa Test Analyst Status Comments Source tetanus, diphtheria, acellular pertu is 2022 AYSHAEESTERLING Irwin markos, left (delt oid) [id number] GlaxoSmithKli az complet ed tetanus, diphtheri a, acellular pertussis 05/19/22 Given [facility] Influenza, injectable, quadrivalent, preservative free 1 2020 SAMI HENRY [id number] 150 SmithKline (SKB) complet ed Influenza , injectabl e, quadrival ent, preservat alec free [facility] SARS-COV-2 (COVID-19) vaccine, mRNA, spike protein, LNP, preservative free, 30 mcg/0.3mL dose 2 2020 IRIS SCOTT [id number] Pfizer, Inc (PFR) complet ed SARS-COV- 2 (COVID-19 ) vaccine, mRNA, spike protein, LNP, preservat alec free, 30 mcg/0.3mL dose DoD COVID Vaccine Pfizer 2020 PATIENCE Irwin markos, left (delt oid) [id number] 208 PFIZER complet ed COVID Vaccine Pfizer 01/06/21 Given 0269C-B [facility] [place] SARS-COV-2 (COVID-19) vaccine, mRNA, spike protein, LNP, preservative free, 30 mcg/0.3mL dose 1 2020 [id number] 208 Unknown (UNK) comple t ed SARS-COV- 2 (COVID-19 ) vaccine, mRNA, spike protein, LNP, preservat alec free, 30 mcg/0.3mL dose DoD Influenza, injectable, quadrivalent, preservative free 1 2019 LIGIA ANTIONE Rudd [id number] 150 Seqirus (SEQ) complet ed Influenza , injectabl e, quadrival ent, preservat alec free DoD influenza, injectable, quadrivalent- pf 2018 [id number] 150 Seqirus complet ed influenza , injectabl e, quadrival ent-pf 02/07/19 Given Ambulat ory Pharmac y influenza, injectable, quadrivalent- pf 2018 [id number] 150 Seqirus complet ed influenza , injectabl e, quadrival ent-pf 02/07/19 Given Ambulat ory Pharmac y Influenza, injectable, quadrivalent, preservative free 0 2018 [id number] 88 150 Seqirus (SEQ) complet ed Influenza , injectabl e, quadrival ent, preservat alec free DoD influenza, injectable, quadrivalent 2017 [id number] 1A 158 Seqirus complet ed influenza , injectabl e, quadrival ent 03/07/18 Given Ambulat ory Pharmac y influenza, injectable, quadrivalent 2017 [id number] 1A 158 Seqirus complet ed influenza , injectabl e, quadrival ent 03/07/18 Given Ambulat ory Pharmac y influenza, injectable, quadrivalent, contains preservative 0 2017 [id number] 1A 158 Seqirus (SEQ) complet ed influenza , injectabl e, quadrival ent, contains preservat alec DoD influenza, injectable, quadrivalent [id number] 158 Seqirus complet ed influenza , injectabl e, quadrival ent 02/16/17 Given Ambulat ory Pharmac y influenza, injectable, quadrivalent [id number] 158 Seqirus complet ed influenza , injectabl e, quadrival ent 02/16/17 Given Ambulat ory Pharmac y influenza, injectable, quadrivalent, contains preservative 0 2016 [id number] 158 Seqirus (SEQ) comple t ed influenza , injectabl e, quadrival ent, contains preservat alec DoD measles/mumps /rubella virus vaccine 2016 [id number] Merck & Company Inc complet ed measles/m umps/rube lla virus vaccine 11/30/16 Given Ambulat ory Pharmac y measles/mumps /rubella virus [facility] [id number] 03 Merck & Company Inc complet ed measles/m umps/rube lla virus vaccine 11/30/16 Given Ambulat ory Pharmac y measles, mumps and rubella virus vaccine 2 2016 Unknown, Provider [id number] Merck (MSD) complet ed measles, mumps and rubella virus vaccine DoD meningococcal oligosacchari de (MCV4O) 2016 [id number] 136 sanofi pasteur complet ed meningoco ccal oligosacc haride (MCV4O) 10/20/16 Given Ambulat ory Pharmac y meningococcal oligosacchari de (MCV4O) [facility] [id number] 136 sanofi pasteur complet ed meningoco ccal oligosacc haride (MCV4O) 10/20/16 Given Ambulat ory Pharmac y meningococcal oligosacchari de (groups A, C, Y and W-135) diphtheria toxoid conjugate vaccine (MCV4O) 1 2016 KEYLA TABOR [id number] 136 Sanofi Pasteur (PMC) complet ed meningoco ccal oligosacc haride (groups A, C, Y and W-135) diphtheri a toxoid conjugate vaccine (MCV4O) DoD meningococcal A,C,Y,W-135 (MCV4P) 2016 UNK 114 complet ed meningoco ccal A,C,Y,W-1 35 (MCV4P) 10/14/16 Given Ambulat ory Pharmac y meningococcal A,C,Y,W-135 (MCV4P) 2016 UNK 114 complet ed meningoco ccal A,C,Y,W-1 35 (MCV4P) 10/14/16 Given Ambulat ory Pharmac y influenza, seasonal, injectable-pf 2015 UNK 140 Seqirus complet ed influenza , seasonal, injectabl e-pf 03/03/16 Given Ambulat ory Pharmac y influenza, seasonal, injectable-pf 2015 UNK 140 Seqirus complet ed influenza , seasonal, injectabl e-pf 03/03/16 Given Ambulat ory Pharmac y Influenza, seasonal, injectable, preservative free 0 2015 UNK 140 Seqirus (SEQ) comple t ed Influenza , seasonal, injectabl e, preservat alec free DoD influenza, seasonal, injectable-pf 2014 [id number] 140 Medimmune Inc comple t ed influenza , seasonal, injectabl e-pf 03/27/15 Given Ambulat ory Pharmac y influenza, seasonal, injectable-pf 2014 [id number] 140 Medimmune Inc comple t ed influenza , seasonal, injectabl e-pf 03/27/15 Given Ambulat ory Pharmac y Influenza, seasonal, injectable, preservative free 0 2014 [id number] 140 [employer] Limited, Inc. (MED) complet ed Influenza , seasonal, injectabl e, preservat alec free DoD anthrax vaccine 2014 [id number] 24 Emergent [employer] complet ed anthrax vaccine 05/15/14 Given Ambulat ory Pharmac y anthrax vaccine 2014 [id number] 24 [employer] complet ed anthrax vaccine 05/15/14 Given Ambulat ory Pharmac y anthrax vaccine 7 2014 [id number] 24 [employer] [place] (MIP) complet ed anthrax vaccine DoD influenza, live, intranasal,qu adrivalent 2013 [id number] 149 Medimmune Inc comple t ed influenza , live, intranasa l,quadriv alent 03/13/14 Given Ambulat ory Pharmac y influenza, live, intranasal,qu adrivalent 2013 [id number] 149 Medimmune Inc comple t ed influenza , live, intranasa l,quadriv alent 03/13/14 Given Ambulat ory Pharmac y influenza, live, intranasal, quadrivalent 0 2013 [id number] 149 MedImmune, Inc. (MED) complet ed influenza , live, intranasa l, quadrival ent DoD varicella virus vaccine 2013 21 complet ed varicella virus vaccine 10/12/13 Given Ambulat ory Pharmac y varicella virus vaccine 0 2013 21 () Not Given varicella virus vaccine DoD influenza, live, intranasal,qu adrivalent 2012 [id number] 149 Medimmune Inc comple t ed influenza , live, intranasa l,quadriv alent 02/02/13 Given Ambulat ory Pharmac y typhoid vaccine, live, oral 2012 UNK 25 [employer] complet ed typhoid vaccine, live, oral 02/02/13 Given Ambulat ory Pharmac y typhoid vaccine, live, oral 2012 UNK 25 [employer] complet ed typhoid vaccine, live, oral 02/02/13 Given Ambulat ory Pharmac y influenza, live, intranasal,qu adrivalent 2012 [id number] 149 Kovioune Inc comple t ed influenza , live, intranasa l,quadriv alent 02/02/13 Given Ambulat ory Pharmac y typhoid vaccine, live, oral 4 2012 UNK 25 [employer] ([facility]) complet ed typhoid vaccine, live, oral DoD influenza, live, intranasal, quadrivalent 0 2012 [id number] 149 [employer]ist. (MED) complet ed influenza , live, intranasa l, quadrival ent DoD tetanus, diphtheria, acellular pertu is 2011 [id number] 8aa 115 GlaxoSmithKli ne complet ed tetanus, diphtheri a, acellular pertussis 02/16/12 Given Ambulat ory Pharmac y tetanus, diphtheria, acellular pertu is 2011 [id number] 8AA 115 GlaxoSmithKli ne complet ed tetanus, diphtheri a, acellular pertussis 02/16/12 Given Ambulat ory Pharmac y tetanus toxoid, reduced diphtheria toxoid, and acellular pertu is vaccine, adsorbed 0 [id number] [address] (SKB) complet ed tetanus toxoid, reduced diphtheri a toxoid, and acellular pertussis vaccine, adsorbed DoD influenza, seasonal,high dose-pf 2011 [id number] 135 sanofi pasteur complet ed influenza , seasonal, high dose-pf 01/01/12 Given Ambulat ory Pharmac y influenza, seasonal,high dose-pf 2011 [id number] 135 sanofi pasteur complet ed influenza , seasonal, high dose-pf 01/01/12 Given Ambulat ory Pharmac y influenza, high dose seasonal, preservative- free 0 2011 [id number] 135 Sanofi Pasteur (PMC) complet ed influenza , high dose seasonal, preservat alec-free DoD anthrax vaccine 2010 UNK 24 complet ed anthrax vaccine 03/14/11 Given Ambulat ory Pharmac y anthrax vaccine 2010 UNK 24 complet ed anthrax vaccine 03/14/11 Given Ambulat ory Pharmac y anthrax vaccine 5 2010 UNK 24 (EBS) complet ed anthrax vaccine DoD typhoid Vi capsular polysaccharid e vac 2010 G1124 101 sanofi pasteur complet ed typhoid Vi capsular polysacch aride vac 01/07/11 Given Ambulat ory Pharmac y typhoid Vi capsular polysaccharid e vac 2010 G1124 101 sanofi pasteur complet ed typhoid Vi capsular polysacch aride vac 01/07/11 Given Ambulat ory Pharmac y typhoid Vi capsular polysaccharid e vaccine 2 2010 G1124 101 Sanofi Pasteur (PMC) complet ed typhoid Vi capsular polysacch aride vaccine DoD influenza virus vaccine, live 2010 [id number] 111 Medimmune Inc comple t ed influenza virus vaccine, live 01/05/11 Given Ambulat ory Pharmac y influenza virus vaccine, live 2010 [id number] 111 Kovi[employer]e Inc comple t ed influenza virus vaccine, live 01/05/11 Given Ambulat ory Pharmac y influenza virus vaccine, live, attenuated, for intranasal use 0 2010 [id number] 111 MedIYuppics, Inc. (MED) complet ed influenza virus vaccine, live, attenuate d, for intranasa l use DoD anthrax vaccine 2010 UNK 24 complet ed anthrax vaccine 07/25/10 Given Ambulat ory Pharmac y anthrax vaccine 2010 UNK 24 complet ed anthrax vaccine 07/25/10 Given Ambulat ory Pharmac y anthrax vaccine 4 2010 UNK 24 (EBS) complet ed anthrax vaccine DoD influenza virus vaccine, live 2009 [id number] 111 Medimmune Inc comple t ed influenza virus vaccine, live 12/27/09 Given Ambulat ory Pharmac y yellow fever vaccine 2009 [id number] 37 Emergent Bios[employer] complet ed yellow fever vaccine 12/27/09 Given Ambulat ory Pharmac y yellow fever vaccine 2009 [id number] 37 [employer] complet ed yellow fever vaccine 12/27/09 Given Ambulat ory Pharmac y influenza virus vaccine, live 2009 [id number] 111 Kovi[employer] Inc comple t ed influenza virus vaccine, live 12/27/09 Given Ambulat ory Pharmac y yellow fever vaccine 0 2009 [id number] 37 [employer] [place] (MIP) complet ed yellow fever vaccine DoD influenza virus vaccine, live, attenuated, for intranasal use 0 2009 [id number] 111 [employer], Inc. (MED) complet ed influenza virus vaccine, live, attenuate d, for intranasa l use DoD anthrax vaccine 2009 [id number] 24 [employer] complet ed anthrax vaccine 11/13/09 Given Ambulat ory Pharmac y anthrax vaccine 2009 [id number] 24 [employer] complet ed anthrax vaccine 11/13/09 Given Ambulat ory Pharmac y anthrax vaccine 3 2009 [id number] 24 [employer] [place] (MIP) complet ed anthrax vaccine DoD Novel influenza-H1N 1-09, injectable 2008 [id number] 1A 127 complet ed Novel influenza -D7J4-54, injectabl e 03/21/09 Given Ambulat ory Pharmac y Novel influenza-H1N 1-09, injectable 2008 [id number] 1A 127 complet ed Novel influenza -M3C9-17, injectabl e 03/21/09 Given Ambulat ory Pharmac y Novel influenza-H1N 1-09, injectable 0 2008 [id number] 1A 127 (AG) complet ed Novel influenza -T8G5-87, injectabl e DoD anthrax vaccine 2008 [id number] 24 Unknown complet ed anthrax vaccine 03/12/09 Given Ambulat ory Pharmac y anthrax vaccine 2008 zzLef t Arm [id number] 24 Unknown complet ed anthrax vaccine 03/12/09 Given Ambulat ory Pharmac y anthrax vaccine 2 2008 EHSAN LOVE [id number] 24 Other (OTH) complet ed anthrax vaccine DoD Cuban Encephalitis vaccine, SC 2008 [id number] 39 sanofi pasteur complet ed Cuban Encephali tis vaccine, SC 03/07/09 Given Ambulat ory Pharmac y Cuban Encephalitis vaccine, SC 2008 zzLef t Arm [id number] 39 Unknown complet ed Cuban Encephali tis vaccine, SC 03/07/09 Given Ambulat ory Pharmac y Cuban Encephalitis Vaccine VT 3 2008 PAUL MELARA [id number] 39 Other (OTH) comp let ed Cuban Encephali tis Vaccine VT DoD Cuban Encephalitis vaccine, SC 2008 UNK 39 Merck & Company Inc complet ed Cuban Encephali tis vaccine, SC 02/06/09 Given Ambulat ory Pharmac y Cuban Encephalitis vaccine, SC 2008 UNK 39 Merck & Company Inc complet ed Cuban Encephali tis vaccine, SC 02/06/09 Given Ambulat ory Pharmac y Cuban Encephalitis Vaccine SC 2 2008 UNK 39 Merck (MSD) complet ed [place] Encephali tis Vaccine [place] DoD influenza virus vaccine, live 2008 UNK 111 Unknown complet ed influenza virus vaccine, live 01/30/09 Given Ambulat ory Pharmac y anthrax vaccine 2008 UNK 24 Emergent [employer] complet ed anthrax vaccine 01/30/09 Given Ambulat ory Pharmac y vaccinia (smallpox) vaccine 2008 UNK 75 Sanofi Pasteur Incorporated complet ed vaccinia (smallpox ) vaccine 01/30/09 Given Ambulat ory Pharmac y Cuban Encephalitis vaccine, SC 2008 UNK 39 Merck & Company Inc complet ed Cuban Encephali tis vaccine, SC 01/30/09 Given Ambulat ory Pharmac y influenza virus vaccine, live 2008 [id number] 111 [employer] comple t ed influenza virus vaccine, live 01/30/09 Given Ambulat ory Pharmac y vaccinia (smallpox) vaccine 2008 zzLef t Arm [id number] -A 75 [employer] Inc. complet ed vaccinia (smallpox ) vaccine 01/30/09 Given Ambulat ory Pharmac y anthrax vaccine 2008 zDeniz ht Arm [id number] 24 Unknown complet ed anthrax vaccine 01/30/09 Given Ambulat ory Pharmac y Cuban Encephalitis vaccine, SC 2008 zzLef t Arm [id number] 39 Unknown complet ed Cuban Encephali tis vaccine, SC 01/30/09 Given Ambulat ory Pharmac y anthrax vaccine 1 2008 PAUL MELARA [id number] 24 Other (OTH) comp let ed anthrax vaccine DoD Cuban Encephalitis Vaccine SC 1 2008 PAUL MELARA [id number] 39 Other (OTH) comp let ed [place] Encephali tis Vaccine [place] DoD vaccinia (smallpox) vaccine 1 2008 PAUL MELARA W04-003 -A 75 [facility] complet ed vaccinia (smallpox ) vaccine DoD influenza virus vaccine, live, attenuated, for intranasal use 1 2008 PAUL MELARA [id number] 111 [employer]. (MED) complet ed influenza virus vaccine, live, attenuate d, for intranasa l use DoD typhoid Vi capsular polysaccharid e vac 2008 R4809-9 101 sanofi pasteur complet ed typhoid Vi capsular polysacch aride vac 12/17/08 Given Ambulat ory Pharmac y typhoid Vi capsular polysaccharid e vac 2008 zzLef t Arm [id number] 101 sanofi pasteur complet ed typhoid Vi capsular polysacch aride vac 12/17/08 Given Ambulat ory Pharmac y hepatitis A-hepatitis B vaccine 2008 zzLef t Arm [id number] 2aa 104 GlaxoSmithKli ne complet ed hepatitis A-hepatit is B vaccine 12/17/08 Given Ambulat ory Pharmac y typhoid Vi capsular polysaccharid e vaccine 1 2008 EMMA HERRERA [id number] 101 Sanofi Pasteur (PMC) complet ed typhoid Vi capsular polysacch aride vaccine DoD hepatitis A and hepatitis B vaccine 3 2008 EMMA HERRERA ahabb16 2aa 104 [facility] (SKB) complet ed hepatitis A and hepatitis B vaccine DoD hepatitis A-hepatitis B vaccine 2008 [id number] 2AA 104 GlaxoSmithKli ne complet ed hepatitis A-hepatit is B vaccine 07/20/08 Given Ambulat ory Pharmac y tetanus-dipht h toxoids (Td) adult/adol 2008 [id number] 1AB 09 sanofi pasteur complet ed tetanus-d iphth toxoids (Td) adult/ado l 07/20/08 Given Ambulat ory Pharmac y hepatitis A-hepatitis B vaccine 2008 [id number] 2AA 104 GlaxoSmithKli ne complet ed hepatitis A-hepatit is B vaccine 07/20/08 Given Ambulat ory Pharmac y tetanus-dipht h toxoids (Td) adult/adol 2008 [id number] 1AB 09 sanofi pasteur complet ed tetanus-d iphth toxoids (Td) adult/ado l 07/20/08 Given Ambulat ory Pharmac y tetanus and diphtheria toxoids, adsorbed, preservative free, for adult use (2 Lf of tetanus toxoid and 2 Lf of diphtheria toxoid) 0 2008 [id number] 1AB 09 Sanofi Pasteur (PMC) complet ed tetanus and diphtheri a toxoids, adsorbed, preservat alec free, for adult use (2 Lf of tetanus toxoid and 2 Lf of diphtheri a toxoid) DoD hepatitis A and hepatitis B vaccine 2 2008 [id number] 2AA 104 [facility] (SKB) complet ed hepatitis A and hepatitis B vaccine DoD poliovirus vaccine, inactivated 2008 N0415-0 10 K[employer] Inc comple t ed polioviru s vaccine, inactivat ed 07/17/08 Given Ambulat ory Pharmac y poliovirus vaccine, inactivated 2008 T5928-6 10 [employer] Inc comple t ed polioviru s vaccine, inactivat ed 07/17/08 Given Ambulat ory Pharmac y poliovirus vaccine, inactivated 0 2008 V3704-2 10 [employer]. (MED) complet ed polioviru s vaccine, inactivat ed DoD hepatitis A-hepatitis B vaccine 2008 AHABB16 0AA 104 GlaxoSmithKli ne complet ed hepatitis A-hepatit is B vaccine 06/20/08 Given Ambulat ory Pharmac y pneumococcal polysaccharid e, 23 valent 2008 [id number] 33 CSL Behring complet ed pneumococ blanca polysacch aride, 23 valent 06/20/08 Given Ambulat ory Pharmac y influenza virus vaccine,split 2008 [id number] 15 Medimmune Inc comple t ed influenza virus vaccine,s plit 06/20/08 Given Ambulat ory Pharmac y meningococcal A,C,Y,W-135 (MCV4P) 2008 [id number] 114 CSL Behring complet ed meningoco ccal A,C,Y,W-1 35 (MCV4P) 06/20/08 Given Ambulat ory Pharmac y measles/mumps /rubella virus vaccine 2008 [id number] 03 Merck & Company Inc complet ed measles/m umps/rube lla virus vaccine 06/20/08 Given Ambulat ory Pharmac y hepatitis A-hepatitis B vaccine 2008 [id number] 0AA 104 [facility] complet ed hepatitis A-hepatit is B vaccine 06/20/08 Given Ambul[facility] Pharmac y meningococcal A,C,Y,W-135 (MCV4P) 2008 [id number] CSL [facility]ring complet ed meningoco ccal A,C,Y,W-1 35 (MCV4P) 06/20/08 Given Ambul[facility] ory Pharmac y influenza virus vaccine,split 2008 [id number] Med[employer] Inc comple t ed influenza virus vaccine,s plit 06/20/08 Given Ambul[facility] ory Pharmac y measles/mumps /rubella virus vaccine 2008 [id number] Merck [employer] Company Inc complet ed measles/m umps/rube lla virus vaccine 06/20/08 Given Ambul[facility] ory Pharmac y pneumococcal polysaccharid e, 23 valent 2008 [id number] 33 [facility] complet ed pneumococ blanca polysacch aride, 23 valent 06/20/08 Given Ambul[facility] ory Pharmac y measles, mumps and rubella virus vaccine 1 2008 [id number] Merck (MSD) complet ed measles, mumps and rubella virus vaccine DoD influenza virus vaccine, split virus (incl. purified surface antigen)-reti red CODE 0 2008 [id number] 15 [employer] (MED) complet ed influenza virus vaccine, split virus (incl. purified surface antigen)- retired CODE DoD varicella virus vaccine 1 2008 EXEMPT 21 Transcribed (TRS) Not Given varicella virus vaccine DoD pneumococcal polysaccharid e vaccine, 23 valent 0 2008 [id number] 33 [employer] (AVB) complet ed pneumococ blanca polysacch aride vaccine, 23 valent DoD hepatitis A and hepatitis B vaccine 1 2008 [id number] 104 [employer] (SKB) complet ed hepatitis A and hepatitis B vaccine DoD meningococcal polysaccharid e (groups A, C, Y and W-135) diphtheria toxoid conjugate vaccine (MCV4P) 0 2008 [id number] 114 [employer] (AVB) complet ed meningoco ccal polysacch aride (groups A, C, Y and W-135) diphtheri a toxoid conjugate vaccine (MCV4P) DoD Results Combined list of recent chemistry, hematology and other laboratory results from Department of Defense and Veterans Affairs, ranging from 15 months to all on record, depending upon the facility. Order Name Results Value Reference Range Date Interpretation Specimen Comments Source Infectio us Disease HIV-1/O/2 Non-Reac tive 19 ( 4 2:35 PM) 02/15 N Interpretiv e Data: INTERPRETAT ION: This method is a screening procedure for the detection of HIV p24 Antigen and Antibodies to HIV-1, including Group O, and/or HIV-2. NON-REACTIV E: HIV-1 antigen and HIV-1 / HIV-2 antibodies were not detected. No laboratory evidence of HIV infection. A negative test result does not exclude the possibility of exposure to or infection with HIV. HIV antibodies and/or p24 antigen may be undetectabl e in some stages of the infection and in some clinical conditions. If acute HIV infection is suspected, consider submitting another specimen to a reference laboratory for HIV-1 RNA. SCREEN REACTIVE - CONFIRMATIO N TO FOLLOW: Possible presence of HIV-1antibo dies, HIV-2 antibodies and/or HIV-1 p24 antigen. Specimen will reflex to the confirmatio n testing that fulfills the Center for Disease Control and Prevention' s HIV diagnostic algorithm. Refer to [facility] Lab Guide for additional information : [email or web address] x Testing performed by Melissa huffman. [facility] Miscella neous Sendouts Repository Sample Received ( 4 2:35 PM) 02/15 N [facility] Infectio us Disease HIV-1/2 AG/AB 4G CDD LC NEGATIVE 04/21 Result Comment: Performed At: [facility] [id number] [place] [address] [address] [place] [address] SKYLAR VANNA PHD Ph:[phone] [facility] Infectio us Disease Source of Test.LC Other (04/21/22 11:07 AM) 04/21 N [facility] Infectio us Disease Strep A, Rapid Positive *ABN* (04/15/22 9:29 AM) 04/15 A [facility] Molecula r Infectio us Disease Reason for Test? Screenin g (04/14/22 7:12 AM) 04/14 N [facility] Molecula r Infectio us Disease SARS-CoV-2 PCR Negative 22 (04/14/22 7:12 AM) 04/14 N Interpretiv e Data: POSITIVE: SARS-CoV-2 detected NEGATIVE: SARS-CoV-2 not detected Negative results do not preclude SARS-CoV-2 infection and should not be used as the sole basis for patient management decisions. Negative results must be combined with clinical observation s, patient history, and epidemiolog ical information . The Aptima SARS-CoV-2 assay performed on the Hashplex system is a nucleic acid amplificati on in vitro diagnostic test intended for the qualitative detection of RNA from SARS-CoV-2 isolated and purified from upper respiratory specimens obtained from individuals meeting COVID-19 clinical and/or epidemiolog ical criteria, as well as upper respiratory specimens collected from an individual, including individuals withoutsymp toms or other reason to suspect COVID-19 infection. The Aptima SARS-CoV-2 assay is for use only under Emergency Use Authorizati on (EUA) in the [place] laboratorie s certified under the Clinical Laboratory Improvement Amendments of 1988 (CLIA), 42 U.S.C. 263a, that meets requirement s to perform high complexity tests.Resul ts are for the identificat ion of SARS-CoV-2 RNA. The SARS-CoV-2 RNA is generally detectable in upper respiratory specimens during the acute phase of infection. Positive results are indicative of the presence of SARS-CoV-2 RNA, clinical correlation with patient history and other diagnostic information is necessary to determine patient infection status. [facility] Chemistr y Cholestero l Total 268 mg/dL 50 - 199 10/09 H Interpretiv e Data: Total Cholesterol Reference Ranges: Blood Value (mg/dl) Score ======== ===== <200 Desirable 200-239 Borderline High >240 High Results > 200, Consider Wellness Consult for Heart Health RN/RD class. [facility] Chemistr y Triglyceri concha 396 mg/dL 30 - 150 10/09 H Interpretiv e Data: Triglycerid es Reference Ranges: Blood Value (mg/dl) Score ======== ===== <150 Normal 150-199 Borderline High 200-499 High >500 Very High Results >150, consider wellness consult for Heart Health RN/RD class [facility] Chemist[facility] HDL Cholestero l 48 mg/dL 40 - 60 10/09 N Interpretiv e Data: HDL Cholesterol Reference Ranges: Blood Value (mg/dl) Score ======== ===== <40 Low >60 High [facility] Chemist[facility] y Chol/HDL 5.6 3.0 - 6.5 10/09 N [facility] Chemistr y LDL 141 mg/dL 1 - 100 10/09 H Interpretiv e Data: LDL Cholesterol Reference Ranges: Blood Value (mg/dl) Score ======== ===== <100 Optimal 100-129 Near optimal/Abo ve Optimal 130-159 Borderline High 160-189 High >190 Very High Results >100, consider wellness consult for Heart Health RN/RD class [facility] Chemist[facility] VLDL 79.2 mg/dL 5.0 - 40.0 10/09 H [facility] Chemistr y Chloride 103 mmol/L 98 - 107 09/17 N [facility] Chemistr y Potassium Lvl 4.3 mmol/L 3.5 - 5.1 09/17 N Result Comment: NTFD DR GOODMAN VIA EMAIL DUE TO DELTA CHECK. [facility] Chemist[facility] Sodium 135 mmol/L 136 - 145 09/17 L [facility] Chemistr y Calcium 9.1 mg/dL 8.5 - 10.1 09/17 N [facility] Chemistr y BUN 13 mg/dL 7 - 18 09/17 N [facility] Chemistr y CO2 29 mmol/L 21 - 32 09/17 N [facility] Chemistr y Glucose Lvl 104 mg/dL 70 - 100 09/17 H Interpretiv e Data: women fasting glucose range 70-95 mg/dL [facility] Chem[facility] Creatinine Level 1.10 mg/dL 0.70 - 1.30 09/17 N [facility] Chemistr y AGAP 3 mmol/L 5 - 15 09/17 L [facility] Chemistr y Osmo Calc 280 09/17 [facility] Chemist[facility] y Albumin 4.0 g/dL 3.4 - 5.0 09/17 N [facility] Chemistr y ALT 69 U/L 16 - 61 09/17 H [facility] Chemistr y AST 38 U/L 15 - 37 09/17 H [facility] Chemist[facility] y Bilirubin Total 0.8 mg/dL 0.2 - 1.0 09/17 N Interpretiv e Data: The use of this bilirubin assay is not recommended for patients undergoing treatment with eltrombopag due to the potential for falsely elevated results. [facility] Chem[facility] Protein Total 7.9 g/dL 6.4 - 8.2 09/17 N Interpretiv e Data: The reference range and other method performance specificati ons have not established for this test in pleural, peritoneal, or synovial fluid. The test result should be integrated into the clinical context for interpretat ion. [facility] Alk Phos 54 U/L 45 - 117 09/17 N [facility] Chem[facility] A/G Ratio 1.03 09/17 [facility] Globulin 3.9 09/17 [facility] Chem[facility] Bilirubin Direct 0.17 mg/dL 0.00 - 0.20 09/17 N [facility] Chemist[facility] y Cholestero l Total 254 mg/dL 50 - 199 09/17 H Interpretiv e Data: Total Cholesterol Reference Ranges: Blood Value (mg/dl) Score ======== ===== <200 Desirable 200-239 Borderline High >240 High Results > 200, Consider Wellness Consult for Heart Health RN/RD class. [facility] Chemistr y Triglyceri concha 416 mg/dL 30 - 150 09/17 H Interpretiv e Data: Triglycerid es Reference Ranges: Blood Value (mg/dl) Score ======== ===== <150 Normal 150-199 Borderline High 200-499 High >500 Very High Results >150, consider wellness consult for Heart Health RN/RD class [facility] HDL Cholestero l 46 mg/dL 40 - 60 09/17 N Interpretiv e Data: HDL Cholesterol Reference Ranges: Blood Value (mg/dl) Score ======== ===== <40 Low >60 High [facility] Chemist[facility] y Chol/HDL 5.5 3.0 - 6.5 09/17 N [facility] Chemist[facility] y LDL 125 mg/dL 1 - 100 09/17 H Interpretiv e Data: LDL Cholesterol Reference Ranges: Blood Value (mg/dl) Score ======== ===== <100 Optimal 100-129 Near optimal/Abo ve Optimal 130-159 Borderline High 160-189 High >190 Very High Results >100, consider wellness consult for Heart Health RN/RD class [facility] VLDL 83.2 mg/dL 5.0 - 40.0 09/17 H [facility] Chemist[facility] y eGFR CKD EPI 91 mL/min/1 .73_m2 09/17 Interpretiv e Data: Estimated Glomerular Filtration Rate (eGFR) calculated using the 2020 Chronic Kidney Disease-Epi demiology (CKD-EPI) Collaborati on creatinine equation; units of measure are mL/min/1.73 m2. Results are only valid for adults (e18 years) whose serum creatinine is in steady state.? eGFR calculation s are not valid for patients with acute kidney injury and for patients on dialysis. ?Creatinine -based estimates of kidney function may also be inaccurate in patients with reduced creatinine generation due to decreased muscle mass (e.g., malnutritio n, severe hypoalbumin emia, sarcopenia, chronic neuromuscul ar disease, amputations , severe heart failure or liver disease) and in patients with increased creatinine generation due to increased muscle mass (e.g., muscle builders, anabolic steroids) or increased dietary intake. As drug clearance is proportiona l to total GFR and not GFR indexed to body surface area (BSA), in individuals with a BSA substantial ly different than 1.73 m2, drug dosing should be based the reported eGFRvalue de-indexed from BSA by multiplying by the individual s BSA and dividing by 1.73. CKD is diagnosed based on abnormaliti es of kidney structure or function, present for >3 months, with implication s for health and disease. CKD is classified and staged based on cause, eGFR and albuminuria (quantified as urine albumin to creatinine ratio). An eGFR >60 mL/min/1.73 m2 in the absence of increased urine albumin excretion or structural abnormaliti es does not represent CKD.eGFR (mL/min/1.7 3 m2) CKD stage Interpretat ion e90 G1 Normal 60-89 G2 Mild decrease 45-59 G3A Mild to moderate decrease 30-44 G3B Moderate to severe decrease 15-29 G4 Severe decrease <15 G5 Kidney failure [facility] eGFR CKD EPI 82 mL/min/1 .73_m2 09/15 Interpretiv e Data: Estimated Glomerular Filtration Rate (eGFR) calculated using the 2020 Chronic Kidney Disease-Epi demiology (CKD-EPI) Collaborati on creatinine equation; units of measure are mL/min/1.73 m2. Results are only valid for adults (e18 years) whose serum creatinine is in steady state.? eGFR calculation s are not valid for patients with acute kidney injury and for patients on dialysis. ?Creatinine -based estimates of kidney function may also be inaccurate in patients with reduced creatinine generation due to decreased muscle mass (e.g., malnutritio n, severe hypoalbumin emia, sarcopenia, chronic neuromuscul ar disease, amputations , severe heart failure or liver disease) and in patients with increased creatinine generation due to increased muscle mass (e.g., muscle builders, anabolic steroids) or increased dietary intake. As drug clearance is proportiona l to total GFR and not GFR indexed to body surface area (BSA), in individuals with a BSA substantial ly different than 1.73 m2, drug dosing should be based the reported eGFRvalue de-indexed from BSA by multiplying by the individual s BSA and dividing by 1.73. CKD is diagnosed based on abnormaliti es of kidney structure or function, present for >3 months, with implication s for health and disease. CKD is classified and staged based on cause, eGFR and albuminuria (quantified as urine albumin to creatinine ratio). An eGFR >60 mL/min/1.73 m2 in the absence of increased urine albumin excretion or structural abnormaliti es does not represent CKD.eGFR (mL/min/1.7 3 m2) CKD stage Interpretat ion e90 G1 Normal 60-89 G2 Mild decrease 45-59 G3A Mild to moderate decrease 30-44 G3B Moderate to severe decrease 15-29 G4 Severe decrease <15 G5 Kidney failure [facility] Chloride 103 mmol/L 98 - 107 09/15 N [facility] Chemistr y Potassium Lvl 5.6 mmol/L 3.5 - 5.1 09/15 H [facility] Chemistr y Sodium 136 mmol/L 136 - 145 09/15 N [facility] Chemistr y Calcium 10.0 mg/dL 8.5 - 10.1 09/15 N [facility] Chemistr y BUN 14 mg/dL 7 - 18 09/15 N [facility] Chemistr y CO2 31 mmol/L 21 - 32 09/15 N [facility] Chemistr y Glucose Lvl 104 mg/dL 70 - 100 09/15 H Interpretiv e Data: women fasting glucose range 70-95 mg/dL [facility] Creatinine Level 1.20 mg/dL 0.70 - 1.30 09/15 N [facility] Chemistr y AGAP 2 mmol/L 5 - 15 09/15 L [facility] Chemistr y Osmo Calc 283 09/15 [facility] Chemist[facility] y Albumin 3.8 g/dL 3.4 - 5.0 09/15 N [facility] Chemistr y ALT 66 U/L 16 - 61 09/15 H [facility] Chemist[facility] y AST 35 U/L 15 - 37 09/15 N [facility] Chemist[facility] y Bilirubin Total 0.4 mg/dL 0.2 - 1.0 09/15 N Interpretiv e Data: The use of this bilirubin assay is not recommended for patients undergoing treatment with eltrombopag due to the potential for falsely elevated results. [facility] Protein Total 7.9 g/dL 6.4 - 8.2 09/15 N [facility] Chem[facility] y Alk Phos 60 U/L 45 - 117 09/15 N [facility] Chem[facility] A/G Ratio 0.93 09/15 [facility] Chem[facility] Globulin 4.1 09/15 [facility] Chem[facility] Bilirubin Direct 0.11 mg/dL 0.00 - 0.20 09/15 N [facility] Chemist[facility] Hemoglobin A1c 5.6 % 4.2 - 5.6 09/15 N Interpretiv e Data: Prediabetes : 5.7% - 6.4% Wellness consult for Pre-Diabete s Class Diabetes: > 6.5% Refer to CDE/DSME Glycemic Control Targets for Known Diabetics: Goal <=7% Action > 8% [facility] eAvg Glucose 114 09/15 [facility] Chem[facility] TSH 1.870 uIU/mL 0.358 - 3.740 09/15 N Interpretiv e Data: High levels of biotin can cause clinically significant falsely decreased results in this assay. [facility] Chem[facility] T4 Free 0.75 ng/dL 0.76 - 1.46 09/15 L Interpretiv e Data: High levels of biotin can cause clinically significant falsely decreased results in this assay. [facility] Hematolo gy WBC 8.6 10^3/uL 3.2 - 10.8103 09/15 N [facility] Hematolo gy RBC 4.88 10^6/uL 4.14 - 5.80152 09/15 N [facility] Hematolo gy Hemoglobin 15.2 g/dL 13.1 - 18.6 09/15 N [facility] Hematolo gy Hematocrit 43.0 % 38.1 - 54.1 09/15 N [facility] Hematolo gy MCV 88.1 fL 79.7 - 97.6 09/15 N [facility] Hematolo gy MCH 31.1 pg 23.8 - 33.4 09/15 N [facility] Hematolo gy MCHC 35.3 g/dL 31.0 - 36.3 09/15 N [facility] Hematolo gy MPV 9.7 fL 9.4 - 12.3 09/15 N [facility] Hematolo gy RDW SD 41.8 fL 35.1 - 43.9 09/15 N [facility] Hematolo gy Platelets 219 10^3/uL 150 - 228943 09/15 N [facility] Hematolo gy Differenti al? Auto (09/15/21 11:16 AM) 09/15 N [facility] Chemistr y Ur Creat 280 mg/dL 09/15 [facility] Chemist[facility] Ur Protein 17.8 mg/dL 0.0 - 11.9 09/15 H [facility] Chemistr y Ur Protein/Ur Creat Ratio 0.06 09/15 [facility] Urinalys is UA RBC 2 /HPF 0 - 10 09/15 N [facility] Urinalys is UA Dysmorphic RBC 0 /HPF 09/15 [facility] Urinalys is UA WBC <1 /HPF 0 - 10 09/15 N [facility] Urinalys is UA Yeast Hyphae 0 /HPF 09/15 [facility] Urinalys is UA Mucous Rare /LPF 09/15 A [facility] Urinalys is UA Glucose Negative (09/15/21 11:16 AM) 09/15 N [facility] Urinalys is UA Protein Negative (09/15/21 11:16 AM) 09/15 N [facility] Urinalys is UA Bili Negative (09/15/21 11:16 AM) 09/15 N [facility] Urinalys is UA Urobilinog en 0.2 (09/15/21 11:16 AM) 09/15 N [facility] Urinalys is UA pH 7.0 5.0 - 7.5 09/15 N [facility] Urinalys is UA Blood Negative (09/15/21 11:16 AM) 09/15 N [facility] Urinalys is UA Ketones Negative (09/15/21 11:16 AM) 09/15 N [facility] Urinalys is UA Nitrite Negative (09/15/21 11:16 AM) 09/15 N [facility] Urinalys is UA Leuk Esterase Negative (09/15/21 11:16 AM) 09/15 N [facility] Urinalys is UA Clarity Clear (09/15/21 11:16 AM) 09/15 N [facility] Urinalys is UA Spec Rifle 1.020 1.005 - 1.030 09/15 N [facility] Urinalys is UA Color Yellow (09/15/21 11:16 AM) 09/15 N [facility] Hematolo gy Neutrophil % Auto 62.8 % 44.5 - 78.4 09/15 N [facility] Hematolo gy Lymphocyte % Auto 25.3 % 13.7 - 43.7 09/15 N [facility] Hematolo gy Monocyte % Auto 9.1 % 3.7 - 11.4 09/15 N [facility] Hematolo gy Eosinophil % Auto 2.1 % 0.2 - 5.9 09/15 N [facility] Hematolo gy Basophil % Auto 0.5 % 0.1 - 1.2 09/15 N [facility] Hematolo gy Imm. Granulocyt e % 0.2 % 0.0 - 5.0 09/15 N [facility] Hematolo gy nRBC % Auto 0.0 % 09/15 [facility] Hemat[facility] Neutro Absolute 5.37 10^3/uL 1.50 - 8.94480 09/15 N [facility] Hematolo gy Lymph Absolute 2.16 10^3/uL 0.80 - 3.30914 09/15 N [facility] Hematolo gy Gila Absolute 0.78 10^3/uL 0.20 - 0.07887 09/15 N [facility] Hematolo [facility] Eos Absolute 0.18 10^3/uL 0.00 - 0.38243 09/15 N [facility] Hematolo gy Baso Absolute 0.04 10^3/uL 0.00 - 0.96522 09/15 N [facility] Hematolo gy Imm. Granulocyt e Absolute 0.02 10^3/uL 09/15 [facility] Hematolo gy nRBC Absolute 0.000 10^3/uL 0.000 - 0.363378 09/15 N [facility] Vital Signs Combined list of inpatient and outpatient Vital Signs from Department of Defense and Veterans Affairs, ranging from 12 months to all on record, depending upon the facility. Vital Sign Value Date Comments Source Systolic Blood Pressure 144mm[Hg] 04/15/2022 14:05:00 [facility] Diastolic Blood Pressure 90mm[Hg] 04/15/2022 14:05:00 [facility]ulatory [facility] Peripheral Pulse Rate 102bpm 04/15/2022 14:05:00 [facility] Mean Arterial Pressure, Calc 108mm[Hg] 04/15/2022 14:05:00 [facility]ulatory [facility] Temperature Oral 37.1Cel 04/15/2022 14:05:00 [facility]ulatory [facility] Respiratory Rate 16br/min 04/15/2022 14:05:00 [facility] Systolic Blood Pressure 172mm[Hg] 09/15/2021 13:08:00 [facility]ulatory [facility] Diastolic Blood Pressure 108mm[Hg] 09/15/2021 13:08:00 [facility]ulatory [facility] BP Site 09/15/2021 13:08:00 [facility] Peripheral Pulse Rate 85bpm 09/15/2021 13:08:00 [facility]ulatory [facility] Vital Signs Comments 09/15/2021 13:08:00 [facility]ulatory [facility] Mean Arterial Pressure, Calc 129mm[Hg] 09/15/2021 13:08:00 [facility]ulatory [facility] Respiratory Rate 16br/min 09/15/2021 13:08:00 [facility]ulatory Pharm[facility] Oxygen Saturation 95% 09/15/2021 13:08:00 [facility] Systolic Blood Pressure 170mm[Hg] 09/15/2021 12:30:00 [facility]ulatory Pharmacy Diastolic Blood Pressure 106mm[Hg] 09/15/2021 12:30:00 [facility]ulatory [facility] BP Site 09/15/2021 12:30:00 [facility] Peripheral Pulse Rate 89bpm 09/15/2021 12:30:00 [facility] Mean Arterial Pressure, Calc 127mm[Hg] 09/15/2021 12:30:00 [facility] Systolic Blood Pressure 148mm[Hg] 01/06/2022 15:23:00 [facility]ulatory Pharm[facility] Diastolic Blood Pressure 72mm[Hg] 01/06/2022 15:23:00 [facility] Mean Arterial Pressure, Calc 97mm[Hg] 01/06/2022 15:23:00 [facility]ulatory [facility] Peripheral Pulse Rate 60bpm 01/06/2022 15:23:00 [facility]ulatory Pharm[facility] Respiratory Rate 16br/min 01/06/2022 15:23:00 [facility]ulatory Pharm[facility] Temperature Oral 36.8Cel 01/06/2022 15:23:00 [facility] BP Site 01/06/2022 15:23:00 [facility] Blood Pressure Manual 01/06/2022 15:23:00 [facility]ulatory [facility] Systolic Blood Pressure 162mm[Hg] 09/15/2021 13:07:00 [facility]ulatory Pharm[facility] Diastolic Blood Pressure 102mm[Hg] 09/15/2021 13:07:00 [facility]ulatory Pharm[facility] BP Site 09/15/2021 13:07:00 [facility] Vital Signs Comments 09/15/2021 13:07:00 [facility] Mean Arterial Pressure, Calc 122mm[Hg] 09/15/2021 13:07:00 [facility]ulatory [facility] Systolic Blood Pressure 138mm[Hg] 10/15/2021 15:05:00 [facility]ulatory Pharmacy Diastolic Blood Pressure 87mm[Hg] 10/15/2021 15:05:00 [facility]ulatory [facility] Mean Arterial Pressure, Calc 104mm[Hg] 10/15/2021 15:05:00 Ambulatory [facility] Peripheral Pulse Rate 55bpm 10/15/2021 15:05:00 Ambulatory Pharmacy Respiratory Rate 16br/min 10/15/2021 15:05:00 Ambulatory Pharmacy Encounters Combined list of: 1) Encounters from Department of Veterans Affairs facilities going back up to thelast 18 months. 2) Encounters from the Department of Defense facilities going back up to 280 months. Location Location Details Encounter Type Encounter Number Reason For Visit Attending Provider ADM Date DC Date Status Disposition Source [facility]) OUTPATIENT [id number] COUGH X 1 WEEK YAHAIRA CORONA W 07/10 Released with Work/Duty Limitations [facility]) [facility]) OUTPATIENT [id number] f/u bronchi tis SEJERRY, YAHAIRA W 07/11 Released with Work/Duty Limitations [facility] Sick Call) [facility] Sick [facility]) OUTPATIENT [id number] f/u bronchi tis SEJERRY, YAHAIRA W 07/12 Sick at Home/Quarter s [facility]D Recruit Sick Call) [facility] Rec[facility] Sick [facility]) OUTPATIENT [id number] F/U BRONCHI TIS SEJERRY, YAHAIRA W 07/16 Released w/o Limitations [facility] Rec[facility]ick Call) [facility] [place]) OUTPATIENT [id number] Bicilli n LETHA HAQ 09/26 Released w/o Limitations [place] [employer]) [facility] [place]) OUTPATIENT [id number] poss celluli tis on left thigh LETHA HAQ 10/10 Released w/o Limitations [place] [employer]) [facility] Ehsan Beatty [place](Immuni zations) OUTPATIENT [id number] shots TETO HERRERADOLORES 12/17 Released w/o Limitations [facility] [place](Immu nizatio ns) [place] [facility]) OUTPATIENT [id number] ([id number]) IMMS. ANTHRAX #1, JEV#1, SAMLLPO X, FLUMIST GLENN MELARAYOMI 01/30 Released w/o Limitations [place] ([place] [employer] [facility]) [place] [facility]) OUTPATIENT [id number] ([id number]) IMMS. JEV#3 PAUL MELARA 03/07 Released w/o Limitations [place] ([place] [employer] [facility]) [place] [facility]) OUTPATIENT [id number] IMMS, ANTHRPAUL AWAN 03/12 [place]ased w/o Limitations [place] ([place] [employer] [facility]) [place] [facility]) OUTPATIENT [id number] ([id number]) YANG CHRISTOPHER 07/12 Released w/o Limitations [place] [employer] [facility]) [place]) OUTPATIENT [id number] josselyn/ [phone] EDUARDO GONZALEZ 08/13 Released w/o Limitations [place] ([facility]) [facility] [place] OUTPATIENT [id number] (CLR-35 )MARYCARMEN ARDON 01/07 Released w/o Limitations [facility] [place] ([place]) [facility] [place] OUTPATIENT [id number] (CLR 35) MODESTO MUSTAFA 01/08 Released w/o Limitations [facility] [place] ([place] [place] [facility] [place] ) OUTPATIENT [id number] ERMA Cramer V 06/28 Released w/o Limitations [facility] [place] [facility] [place] [facility] [place] [facility] Conserv[facility] [place] OUTPATIENT [id number] Notes Entered by: Joey MANLEY 25 May 2012 1518 ------- ------- ------- ------- -- Audiogr JOANNA Douglas 05/25 Released w/o Limitations [place] [facility] [place] [facility] [place] OUT[place] [id number] Notes Entered by: RJ MERINO 05 Jul 2012 0752 ------- ------- ------- ------- -- Pain in lower back CHRISTIE SANTIAGO 07/05 Sick at Home/Quarter s [place] [facility] [place] OUT[place] [id number] Notes Entered by: DORINA IVORY 31 Jan 2013 0733 ------- ------- ------- ------- -- Growth on hand X 2 months JORGE LUIS TREJO 01/31 Released w/o Limitations [place] [facility] [facility] [place] [facility] [place] OUTPATIENT [id number] Notes Entered by: ADALBERTO MARIE 12 Apr 2013 0646 ------- ------- ------- ------- -- Annual Audiogr am (P) ADALBERTO MARIE 04/12 Released w/o Limitations [place] [facility] [place] [facility] [place] [id number] MIAH King 05/11 Released w/o Limitations [place] [place] [facility] [id number] OTF [place] 08/22 Released w/o Limitations [place] [facility] [facility] [place] [place] [facility] [id number] CRS CONSENT LILIBETH GARCIA 09/26 Released w/o Limitations [place] [facility] [facility] [place] [facility]IENT [id number] LILIBETH WEIR 10/04 Released with Work/Duty Limitations [facility] [place] [facility] [facility] [place] [place] [facility] [id number] 1 DAY LILIBETH YOO 10/05 Released w/o Limitations [place] [facility] [facility] [facility] [place] [facility] OUTPATIENT [id number] 1 WK OTF MERINO 10/11 Released w/o Limitations [place] [facility] [facility] [facility] [place] [facility] Conservat [place] OUTPATIENT [id number] Notes Entered by: ANUSHA ZACARIAS 11 Apr 2014 1140 ------- ------- ------- ------- -- audiogr am JENS ZACARIAS 04/11 Released w/o Limitations [facility] [place] [facility] [facility] [place] [facility] [id number] Notes Entered by: CELINA WEBER 11 May 2014 1019 ------- ------- ------- ------- -- BERNARDINO-LILIBETH HERNÁNDEZ 05/11 Released w/o Limitations [place] [facility] [place] [id number] Notes Entered by: BRADLEY FARRELL 14 May 2014 0814 ------- ------- ------- ------- -- JARRELL Swartz Test Date: 2014 RAMZE ANSARI 05/14 Released w/o Limitations [place] [facility] [facility] [place] [facility]) OUTPATIENT [id number] [facility] CEB C Co: EDUAR HERRERA 05/16 Released w/o Limitations [place] [facility]) [place] [facility]) OUTPATIENT [id number] Notes Entered by: RICHARD WEST 22 May 2014 0943 ------- ------- ------- ------- -- HTN EDUAR GARDNER 05/22 Released w/o Limitations [place] [facility]) [facility] Rogerio [facility] [place](Physic al Exam) OUTPATIENT [id number] Notes Entered by: GAYATHRI WOLFF 29 May 2015 1425 ------- ------- ------- ------- -- [facility] Vincent 05/29 Released w/o Limitations [facility] [place](Phys ical Exam) [facility] ) OUTPATIENT [id number] SAUL HEALY 08/21 Released w/o Limitations [facility](C P Optomet ry) [facility] ) OUTPATIENT [id number] [facility] SAUL BALLARD 08/27 Released w/o Limitations [facility](C P Optomet ry) [facility] [place]([facility]) OUTPATIENT [id number] Notes Entered by: MELISSA PRAJAPATI 02 Dec 2015 0959 ------- ------- ------- ------- -- imr/DA 7349 pha/kely med 6224/vi GET Fernandez 12/01 Released w/o Limitations [facility] [place](Sold ier Readine ss Program Center) [facility] [place](ER) OUTPATIENT [id number] NICOLE MARKS 02/09 Released w/o Limitations [facility] [place](ER) [facility] [place]([facility]) OUTPATIENT [id number] Notes Entered by: Darshana AHUMADA 03 Mar 2016 0922 ------- ------- ------- ------- -- IMR/FLU CHANI TEJADA 03/03 Released w/o Limitations [facility] [place] [facility] [place] [facility] [place]) OUTPATIENT [id number] [facility] T[facility] Vincent 06/03 Released w/o Limitations [facility] [facility] [place]Phys ical [place]) [facility] [place]01A Cards[place] OUTPATIENT [id number] Notes Entered by: ELISHA GRANT 24 Jun 2016 0721 ------- ------- ------- ------- -- Blood pressur e check LOTUS GRANT 06/24 Released w/o Limitations [facility] [place]01[place] [facility] [place] OUTPATIENT [id number] Notes Entered by: ELISHA GRANT 25 Jun 2016 0724 ------- ------- ------- ------- -- Blood pressur e check. Day 2 of 3 LOTUS GRANT 06/25 Released w/o Limitations [facility] [place] [facility] [place] OUTPATIENT [id number] f/u blood pressur e 3 day check. JEANNE OLSEN 06/26 Released w/o Limitations [facility] [place] [facility] [place]) [place] [id number] routine eye exam SANA EVANS 09/28 Released w/o Limitations [facility] [place]Opt[place] [facility] [place] OUTPATIENT [id number] Notes Entered by: Darshana AHUMADA 14 Oct 2016 0949 ------- ------- ------- ------- -- imr/mgc /mmr titer KEYLA TABOR 10/14 Released w/o Limitations [facility] [place] [facility] [place]) [facility] [place]01[place] OUTPATIENT [id number] ON AND OFF CHEST DISCOMF ORT RAMESH LOZANO 10/19 Released w/o Limitations [facility] [place] [facility] [place] [facility] [place]) [place] [id number] EKG HELDER MORRIS 10/19 Released w/o Limitations [facility] [place] [facility] [place] [id number] CL SANA DU 10/19 Released w/o Limitations [facility] [place] [facility] [place] OUTPATIENT [id number] Notes Entered by: ADAN SHEPPARD 20 Oct 2016 0749 ------- ------- ------- ------- -- 1 OF 1 [facility] 0750 LUBNA EASON 10/20 Released w/o Limitations [facility] [place] [facility] [place] TELE CONSULT [id number] Notes Entered by: RAMESH LOZANO 21 Oct 2016 1300 ------- ------- ------- ------- -- lab result JAVIER PEREZ 10/21 Referred for Appointment [facility] [place] [facility] [place]) [facility] [place] [facility] M01B [place]) OUTPATIENT [id number] labs POEPSEL, STANDING ROCK C 10/22 Released w/o Limitations [facility] [place] [facility] [place] [facility] [place] [facility] [place] OUTPATIENT [id number] Notes Entered by: ADAN SHEPPARD 26 Oct 2016 0704 ------- ------- ------- ------- -- 3 OF 5 BPC POEPSEL 0705 BEATRIZ ZHANG 10/26 Released w/o Limitations [facility] [place] [facility] [place]) [facility] [place] [facility] M01B [place]) OUTPATIENT [id number] Notes Entered by: ADAN SHEPPARD 27 Oct 2016 0708 ------- ------- ------- ------- -- 4 OF 5 BPC POEPSEL 0710 KE PERERA 10/27 Released w/o Limitations [facility] [place] [facility] [place]) [facility] [place] OUTPATIENT [id number] Notes Entered by: RASHAAD BASS 28 Oct 2016 0757 ------- ------- ------- ------- -- BP check day 5 CAMERON GERONIMO 10/28 Released w/o Limitations [facility] [place]01[place] [facility] [place] OUTPATIENT [id number] f/u on bp check POEPSEL, STANDING ROCK C 10/30 Released w/o Limitations [facility] [place] [facility] [place] [id number] echo HELDER MORRIS 11/11 Released w/o Limitations [facility] [place]) [facility] [place] OUTPATIENT [id number] follow up bp COLIN BEAUCHAMP 11/12 Released w/o Limitations [facility] [place] [facility] [place] [facility] [place] OUTPATIENT [id number] Chest pain, unspeci fied, Test DAINAMAHESH JOHNSON 11/13 Released w/o Limitations [facility] [place] [facility] [place]) [facility] [place] [place] [facility] OUTPATIENT [id number] Notes Entered by: MELISSA PRAJAPATI 25 Nov 2016 0804 ------- ------- ------- ------- -- imr/DA 7349 pha/kely med 6224/vi GET Fernandez 11/25 Released w/o Limitations [facility] [place] [facility] [place]) [facility] [place] Hearing Conserv[place] Exam) OUTPATIENT [id number] Notes Entered by: SHAILESH PEREZ 25 Nov 2016 0848 ------- ------- ------- ------- -- Annual Hearing Test REINALDO PEREZ 11/25 Released w/o Limitations [facility] [place] Hearing Conserv [place]ion Exam) [facility] [place] [facility] [place] OUTPATIENT [id number] Notes Entered by: MICHELLE MALIK 25 Nov 2016 0908 ------- ------- ------- ------- -- immuniz ations VASQUEZ WINKLER 11/25 Released w/o Limitations [facility] [place] OUTPATIENT [id number] BREATHI NG PROBLEM S OSWALDONICK IMTRA 03/04 Released w/o Limitations [place]Res[place] [id number] Notes Entered by: SEAN DEVINE 15 Mar 2017 0751 ------- ------- ------- ------- -- Full PFT GENIA PETERSON 03/15 Released w/o Limitations [place] OUTPATIENT [id number] Notes Entered by: LAURI JUAREZ 15 Mar 2017 0757 ------- ------- ------- ------- -- PULMONA RY FUNCTIO N GRAPH AND INTERPR ETATION ERMA SEE 03/15 Released w/o Limitations [place] OUTPATIENT [id number] [facility] JOSE D JOVEL 04/27 Released w/o Limitations [place] [place] [facility] OUTPATIENT [id number] Notes Entered by: MELISSA PRAJAPATI 10 Dec 2017 0926 ------- ------- ------- ------- -- imr/pha /navmed 6224/vi TORO Sy 12/10 Released w/o Limitations [place] Exam[place] OUTPATIENT [id number] Notes Entered by: GEOVANY ADRIAN 20 Dec 2017 1352 ------- ------- ------- ------- -- GEOVANY Nixon 12/20 Released w/o Limitations [facility] [place] Hearing Conserv [place]ion Exam) [facility] [place] OUTPATIENT [id number] Notes Entered by: ANETTE DILL 19 Apr 2018 0627 ------- ------- ------- ------- -- RUQ pain radiate to back BEREKET JARA 04/19 Released w/o Limitations [facility] [place] [facility] [place] TELE CONSULT [id number] Notes Entered by: BEREKET JARA 22 Apr 2018 2318 ------- ------- ------- ------- -- Lab result ИРИНА LUND 04/23 Released w/o Limitations [facility] [place]) [facility] [place] [facility] M01B [place]) OUTPATIENT [id number] Abd/efrain k pain EUSEBIO CHACON 05/03 [facility]ased w/o Limitations [facility] [place] [facility] M01B [place]) [facility] [place] TELE CONSULT [id number] Notes Entered by: ANYA CHACON 04 May 2018 0812 ------- ------- ------- ------- -- XR results MARY FLANAGAN 05/04 Released w/o Limitations [facility] [place] [facility] M01B [place]) [facility] [place] OUTPATIENT [id number] Notes Entered by: Maxime SANDOVAL 21 Jun 2018 0814 ------- ------- ------- ------- -- sean whittaker ZAK BLANCHARD 06/21 Released w/o Limitations [place]) [place] [id number] RE TAMMI LYNN 10/27 Released w/o Limitations [place] [facility](Fr enc [place] - Med Home) OUTPATIENT [id number] 2 PHA//ts b//[phone] ANTIONE CASILLAS 05/11 Released w/o Limitations [facility]( [place] - Med Home) [facility](We llness Cln) OUTPATIENT [id number] Notes Entered by: KRISTAN DINERO 15 Mar 2020 1330 ------- ------- ------- ------- -- TIMBO Alonso 03/15 Released w/o Limitations [facility]( Wellnes s Cln) [facility](Au diology Cln) OUTPATIENT [id number] Notes Entered by: DANIEL HUNT 19 Mar 2020 1340 ------- ------- ------- ------- -- audio - walk in VALENCIA HUNT 03/19 Released w/o Limitations [facility]( Audiolo gy Cln) [facility](Op tometry CP Cln) OUTPATIENT [id number] 2 REE/CL WEARER/ FANY FAYE ESCALONARR 03/21 Released w/o Limitations [facility]( Optomet ry CP Cln) [facility] Team 2) OUTPATIENT [id number] LBP MODESTO WILLIS 04/09 Released w/o Limitations [facility]( [facility] Team 2) [facility] [place] [facility]) OUTPATIENT [id number] 0 2MAIT// L KNEE PX BRAULIO HYLTON 09/20 Released with Work/Duty Limitations [facility]( [facility] [place] [facility]) [facility]) OUTPATIENT [id number] Notes Entered by: ALISON ANDERSON 29 Jan 2021 1325 ------- ------- ------- ------- -- Covid Vaccine IRIS SCOTT 01/29 Released w/o Limitations [facility]( [facility]) OUTPATIENT [id number] Notes Entered by: RJ ARMAS 10 Feb 2021 1423 ------- ------- ------- ------- -- Flu Shot 12-64 SAMI HENRY 02/10 Released w/o Limitations [facility]( [facility] Core Facilit y) [facility] OUTPATIENT [id number] 021 PRE/PORTIA YIFANT YULI SILVESTRE I 04/02 Released w/o Limitations [facility]( [facility]) [facility] [place] [facility]) OUTPATIENT [id number] 2 PHA//MA [id number]//[phone] MODESTO LOPEZ 04/28 Released w/o Limitations [facility]( [place] - Med [place]) [facility]) OUTPATIENT [id number] Notes Entered by: LEANA NAQVI 12 May 2021 1233 ------- ------- ------- ------- -- annual LEANA NAQVI 05/12 Released w/o Limitations [facility]( Hearing Conserv -FC) 0035C-NB [facility] [id number] TOBI ROSSI 08/17 Discharge Disposition: Home or Self Care 0035C-[facility] 0035C-NB [facility] [id number] PORTIA GIANG 08/19 Discharge Disposition: Home or Self Care 0035C-N [facility] [id number] AMDS Outpatient [id number] VASQUEZ LEROY 02/17 Discharge Disposition: Home or Self Care [id number] AMDS Procedures Combined list of: 1) Procedures from Department of Veterans Affairs facilities [facility], not all VA non-surgical procedures are included; 2) All procedures from the Department of Defense facilities. Procedure Procedure Type Code Date Perfomer Comments Sourc e No data available for this section [facility] IMMUNIZATION ADMINISTRATION (INCLUDES PERCUTANEOUS, INTRADERMAL, SUBCUTANEOUS, OR INTRAMUSCULAR INJECTIONS); 1 VACCINE (SINGLE OR COMBINATION VACCINE/TOXOID) 01/07 [facility] FITTING OF SPECTACLES, EXCEPT FOR APHAKIA; MONOFOCAL 08/14 DoD ANTHRAX VACCINE, FOR SUBCUTANEOUS OR INTRAMUSCULAR USE 03/12 DoD IMMUNIZATION ADMINISTRATION (INCLUDES PERCUTANEOUS, INTRADERMAL, SUBCUTANEOUS, OR INTRAMUSCULAR INJECTIONS); 1 VACCINE (SINGLE OR COMBINATION VACCINE/TOXOID) 03/07 [facility] INTRAVENOUS MODERATE (CONSCIOUS) SEDATION/ANALGESIA - FIRST 30 MINUTES 01/31 [facility] INFLUENZA VIRUS VACCINE, TRIVALENT, LIVE (LAIV3), FOR INTRANASAL USE 01/30 [facility] OPHTHALMOLOGICAL SERVICES: MEDICAL EXAMINATION AND EVALUATION, WITH INITIATION OR CONTINUATION OF DIAGNOSTIC AND TREATMENT PROGRAM; INTERMEDIATE, ESTABLISHED PATIENT 08/27 [facility] FITTING OF SPECTACLES, EXCEPT FOR APHAKIA; MONOFOCAL 08/21 DoD THERAPEUTIC, PROPHYLACTIC, OR DIAGNOSTIC INJECTION (SPECIFY SUBSTANCE OR DRUG); SUBCUTANEOUS OR INTRAMUSCULAR 01/08 DoD FITTING OF SPECTACLES, EXCEPT FOR APHAKIA; MONOFOCAL 07/02 DoD PURE TONE AUDIOMETRY (THRESHOLD); AIR ONLY 06/27 [facility] PNEUMOCOCCAL POLYSACCHARIDE VACCINE, 23-VALENT (PPSV23), ADULT OR IMMUNOSUPPRESSED PATIENT DOSAGE, WHEN ADMINISTERED TO INDIVIDUALS 2 YEARS OR OLDER, FOR SUBCUTANEOUS OR INTRAMUSCULAR USE 06/26 [facility] THERAPEUTIC, PROPHYLACTIC OR DIAGNOSTIC INJECTION (SPECIFY SUBSTANCE OR DRUG); SUBCUTANEOUS OR INTRAMUSCULAR 06/25 [facility] PATIENT EDUCATION, NOT OTHERWISE CLASSIFIED, NON-PHYSICIAN PROVIDER, GROUP, PER SESSION 05/12 [facility] PSYCHOLOGICAL OR NEUROPSYCHOLOGICAL TEST ADMINISTRATION, WITH SINGLE AUTOMATED, STANDARDIZED INSTRUMENT VIA ELECTRONIC PLATFORM, WITH AUTOMATED RESULT ONLY 04/02 DoD IMMUNIZATION ADMINISTRATION (INCLUDES PERCUTANEOUS, INTRADERMAL, SUBCUTANEOUS, OR INTRAMUSCULAR INJECTIONS); 1 VACCINE (SINGLE OR COMBINATION VACCINE/TOXOID) 02/10 DoD IMMUNIZATION ADM,INTRAMUSCULAR INJ,SEVERE AC RESPIRATORY SYNDROME CORONAVIR 2 (SARSCOV-2) (CORONAVIR DIS [COVID-19]) VACC,MRNALNP,SPIKE PROT,PRESRV FREE,30 MCG/0.3ML DOS,DILUENT RECONSTITUT;2ND DOSE 01/29 DoD FITTING OF SPECTACLES, EXCEPT FOR APHAKIA; MONOFOCAL 03/21 DoD SCREENING TEST, PURE TONE, AIR ONLY 03/19 DoD IMMUNIZATION ADMINISTRATION (INCLUDES PERCUTANEOUS, INTRADERMAL, SUBCUTANEOUS, OR INTRAMUSCULAR INJECTIONS); 1 VACCINE (SINGLE OR COMBINATION VACCINE/TOXOID) 03/15 DoD TELE ASSESS & MGT SRV PROV QUAL NONPHYS HLTH CARE PRO TO EST PAT,PARENT,GUARD NOT ORIG REL ASSESS & MGT SRV PROV W/IN PREV 7 DAYS NOR LEAD ASSESS & MGT SRV/PX W/IN NXT 24 HR/SOON APT;5-10 MIN MED DIS 05/04 DoD AUDIOMETRIC TESTING OF GROUPS 12/20 [facility] NEGATIVE SCREEN FOR DEPRESSIVE SYMPTOMS CATEGORIZED BY USING A STANDARDIZED DEPRESSION SCREENING/ASSESSMENT TOOL (MDD) 12/10 DoD SPIROMETRY, INCLUDING GRAPHIC RECORD, TOTAL AND TIMED VITAL CAPACITY, EXPIRATORY FLOW RATE MEASUREMENT(S), WITH OR WITHOUT MAXIMAL VOLUNTARY VENTILATION 03/15 [facility] NONINVASIVE EAR OR PULSE OXIMETRY FOR OXYGEN SATURATION; SINGLE DETERMINATION 03/15 [facility]D IMMUNIZATION ADMINISTRATION (INCLUDES PERCUTANEOUS, INTRADERMAL, SUBCUTANEOUS, OR INTRAMUSCULAR INJECTIONS); 1 VACCINE (SINGLE OR COMBINATION VACCINE/TOXOID) 11/25 DoD AUDIOMETRIC TESTING OF GROUPS 11/25 [facility] ECHOCARDIOGRAPHY,TRA NSTHORACIC,REAL-TIME W IMAGE DOCUMENTATION (2D),INCLUDES M-MODE RECORDING,WHEN PERFORMED,COMPLETE,W ITH SPECTRAL DOPPLER ECHOCARDIOGRAPHY,AND W COLOR FLOW DOPPLER ECHOCARDIOGRAPHY 11/11 [facility] BLOOD PRESSURE MEASURED (CKD)(DM) 10/28 [facility] BLOOD PRESSURE MEASURED (CKD)(DM) 10/27 [facility] BLOOD PRESSURE MEASURED (CKD)(DM) 10/26 [facility] BLOOD PRESSURE MEASURED (CKD)(DM) 10/20 [facility] OPHTHALMOLOGICAL SERVICES: MEDICAL EXAMINATION AND EVALUATION, WITH INITIATION OR CONTINUATION OF DIAGNOSTIC AND TREATMENT PROGRAM; INTERMEDIATE, ESTABLISHED PATIENT 10/19 [facility] ELECTROCARDIOGRAM, ROUTINE ECG WITH AT LEAST 12 LEADS; TRACING ONLY, WITHOUT INTERPRETATION AND REPORT 10/19 [facility] COLLECTION OF VENOUS BLOOD BY VENIPUNCTURE 10/14 [facility] FITTING OF SPECTACLES, EXCEPT FOR APHAKIA; MONOFOCAL 09/28 [facility] INFLUENZA VACCINE, INACTIVATED (IIV), SUBUNIT, ADJUVANTED, FOR INTRAMUSCULAR USE 03/03 [facility] TYPHOID VACCINE, CAPSULAR POLYSACCHARIDE (VICPS), FOR INTRAMUSCULAR USE 12/17 [facility] Non-Physician Phone Call To Patient/Provider Brief (5-10min) Non-Physician Phone Call To Patient/Provider Brief (5-10min) 39288 05/18 MARY FLANAGAN [facility] Audiometry Group Testing Audiometry Group Testing 74244 12/20 GEOVANY ADRIAN [facility] Preventive Med Standardized Depre ion Screening: Negative For Symptoms Preventive Med Standardized Depression Screening: Negative For Symptoms 3351F 12/10 TORO BILLINGS During a flms-bp-sruo encounter, I personally reviewed the responses given on the PHQ8 or the SAT by the individual RIKA SpareFoot4 which were recorded by the individual on the A website or the required hardcopy SAT. [facility] Screening Test Of Visual Acuity, Quantitative, Bilateral Screening Test Of Visual Acuity, Quantitative, Bilateral 28993 12/10 TORO BILLINGS Department of defense personnel require periodic vision screening or optometric evaluation at least annually in order to maintain medical readiness which can be affected by changes in vision and visual impairment. Visual acuity was screened using the Stereo Optical vision screening device. Results are entered into the vital signs of this encounter, and/or into the PHA and/or on the SRP coversheet which is scanned into the [facility] folder. [facility] Patient Education Asthma Metered Dose Inhaler Patient Education Asthma Metered Dose Inhaler 76350 03/15 GENIA PETERSON Spirometry Post-bronchodilator Spirometry Post-bronchodilator 14134 03/15 GENIA PETERSON Pulse Oximetry Pulse Oximetry 26117 03/15 GENIA PETERSON Total Body Plethysmography Total Body Plethysmography 21277 03/15 GENIA PETERSON Pulmonary Function Carbon Monoxide Diffusion % (DLCO) Pulmonary Function Carbon Monoxide Diffusion % (DLCO) 47650 03/15 GENIA PETERSON Spirometry Spirometry 16375 03/15 GENIA PETERSON Pulm Funct Tests Airway Resistance By Plethysmography Pulm Funct Tests Airway Resistance By Plethysmography 14192 03/15 ERMA SEE [facility] Vaccines Viral Measles, Mumps and Rubella, Live Vaccines Viral Measles, Mumps and Rubella, Live 00531 11/30 ELHAM WINKLERFER MMR; Series #: 1; .5 mL; SC; Right Arm; Mfg: Code Blue; Lot: [id number]; VIS given (Tracy: 07/24/11). DoD Immunization Administration By Injection, One Vaccine Immunization Administration By Injection, One Vaccine 00917 11/30 PETERSONVASQUEZ Michael Audiometry Group Testing Audiometry Group Testing 25371 11/26 REINALDO PEREZ [facility] Echocardiogram Transthoracic 2-D With Spectral And Color Flow Doppler Echocardiogram Transthoracic 2-D With Spectral And Color Flow Doppler 11866 11/11 QUATTROMAN IHELDER ment & Intervention Blood Pre ure Measured Assessment & Intervention Blood Pressure Measured 10/28 CAMERON GERONIMO ment & Intervention Blood Pre ure Measured Assessment & Intervention Blood Pressure Measured 10/27 KE DISLA ment & Intervention Blood Pre ure Measured Assessment & Intervention Blood Pressure Measured 10/26 BEATRIZ VOGEL BP CHECK- Patient presents to clinic today for day 3 of 5 day BP check. 5 day BP check ordered by Rajinder Snell. Patient denies any complaints at this time. Patient has been resting for approx 15min prior to readings. BP's taken in each arm using large adult cuff. Patient to return to clinic tomorrow for next BP reading. Patient verbalized understanding. [facility] Venipuncture Venipuncture 11486 10/20 KEYLA TABOR Meningococcal (A, C, Y, W-135) Oligosacch Diphtheria Toxoid Conj Vacc 10/20 KEYLA TABOR Meningococcal MCV4O; Series #: 1; .2 mL; IM; Right Arm; Mfg: [employer]; Lot: [id number]; VIS given (Tracy: 07/04/2015). DoD Immunization Administration By Injection, One Vaccine Immunization Administration By Injection, One Vaccine 19085 10/20 SHARONA ANDREEABHARAT Rodriguez A e ment & Intervention Blood Pre ure Measured Assessment & Intervention Blood Pressure Measured 2000F 10/20 LUBNA BAILEY BP CHECK- 30 yo patient with hypertension presents to clinic today for day 1 of 5 day BP check. 5 day BP check ordered by Marta. Patient receives BP check for non-compliant on Lisinopril. Patient did not take his medication the day of his appointment with PCM and his BP was elevated. Patient was advised by PCM to restart lisinopril and do a 5 day BP Check Patient states he took his last dose yesterday. Patient denies any complaints at this time. Patient has been resting for approx 15 min prior to readings. BP taken in right and left arms using large adult cuff. Patient to return to clinic tomorrow for next BP reading. Patient verbalized understanding. [facility] Ophthalmological Prior Patient Start Intermediate Level Care Ophthalmological Prior Patient Start Intermediate Level Care 50038 10/19 SANA EVANS Electrocardiogram Electrocardiogram 24610 10/19 QUATTROMAN I HELDER Michael Prescription And Fitting Bilateral Corneal Lenses (Not For Aphakia) Prescription And Fitting Bilateral Corneal Lenses (Not For Aphakia) 67365 09/28 SANA EVANS Determination Of Refractive State Determination Of Refractive State 61898 09/28 SANA EVANS Spectacles Services Fitting Monofocal Except For Aphakia Spectacles Services Fitting Monofocal Except For Aphakia 62009 09/28 SANA EVANS Ophthalmological New Patient Start Comprehensive Care Ophthalmological New Patient Start Comprehensive Care 74332 09/28 SANA EVANS Influenza Virus Vaccine Inactivated, Adjuvanted, For IM Use Influenza Virus Vaccine Inactivated, Adjuvanted, For IM Use 07669 03/03 CHANI TEJADA Immunization Administration By Injection, One Vaccine Immunization Administration By Injection, One Vaccine 38448 03/03 CHANI TEJADA Ophthalmological Prior Patient Start Intermediate Level Care Ophthalmological Prior Patient Start Intermediate Level Care 39530 08/27 SAUL BALLARD Spectacles Services Fitting Monofocal Except For Aphakia Spectacles Services Fitting Monofocal Except For Aphakia 77971 08/21 SAUL BALLARD Determination Of Refractive State Determination Of Refractive State 8000908/21 SAUL BALLARD Prescription And Fitting Bilateral Corneal Lenses (Not For Aphakia) Prescription And Fitting Bilateral Corneal Lenses (Not For Aphakia) 06286 08/21 SAUL BALLARD Ophthalmological Prior Patient Start Comprehensive Care Ophthalmological Prior Patient Start Comprehensive Care 30897 08/21 SAUL BALLARD Psychometric Neuropsych Testing Battery Admin By Computer Psychometric Neuropsych Testing Battery Admin By Computer 63696 05/14 RAMEZ ANSARI Patient education, not otherwise cla ified, non-physician provider, group, per se ion 04/11 JENS ZACARIAS Audiometry Group Testing Audiometry Group Testing 42380 04/11 JENS ZACARIAS Postoperative Visit, Without Charge Postoperative Visit, Without Charge 43278 10/12 SHERRELL PRINCE Postoperative Visit, Without Charge Postoperative Visit, Without Charge 59369 10/10 SHERRELL PRINCE Laser in situ keratomileusis (LASIK) 10/04 SHERRELL PRINCE Patient Counseling Medical Management Five To Eight Patients Patient Counseling Medical Management Five To Eight Patients 16112 09/27 SHERRELL PRINCE Computerized Corneal Topography Computerized Corneal Topography 55955 08/23 OTF GOODWIN Scanning Computerized Ophthalmic Diagnostic Imaging Anterior Segment, Unilateral Scanning Computerized Ophthalmic Diagnostic Imaging Anterior Segment, Unilateral 00884 08/23 OTF GOODWIN Corneal Pachymetry Corneal Pachymetry 27812 OTF GOODWIN Determination Of Refractive State Determination Of Refractive State 68532 08/23 OTF GOODWIN Ophthalmological New Patient Start Comprehensive Care Ophthalmological New Patient Start Comprehensive Care 22115 08/23 OTF GOODWIN Determination Of Refractive State Determination Of Refractive State 74249 05/11 MIAH ARCHER Prescription And Fitting Bilateral Corneal Lenses (Not For Aphakia) Prescription And Fitting Bilateral Corneal Lenses (Not For Aphakia) 10769 05/11 MIAH ARCHER Ophthalmological Prior Patient Start Comprehensive Care Ophthalmological Prior Patient Start Comprehensive Care 63826 05/11 MIAH ARCHER Audiometry Group Testing Audiometry Group Testing 63108 04/12 ADALBERTO MARIE Patient education, not otherwise cla ified, non-physician provider, group, per se ion 04/12 ADALBERTO MARIE Audiometry Group Testing Audiometry Group Testing 83179 05/26 JOANNA MANELY Patient education, not otherwise cla ified, non-physician provider, group, per se ion 05/26 JOANNA MANLEY Determination Of Refractive State Determination Of Refractive State 54582 06/28 ERMA BRITO Ophthalmological New Patient Start Comprehensive Care Ophthalmological New Patient Start Comprehensive Care 51431 06/28 ERMA BRITO Immunization Administration By Injection, One Vaccine Immunization Administration By Injection, One Vaccine 85502 01/07 MARYCARMEN ARMIJO Spectacles Services Fitting Monofocal Except For Aphakia Spectacles Services Fitting Monofocal Except For Aphakia 14226 08/14 EDUARDO GONZALEZ Prescription And Fitting Bilateral Corneal Lenses (Not For Aphakia) Prescription And Fitting Bilateral Corneal Lenses (Not For Aphakia) 66403 08/14 EDUARDO GONZALEZ Determination Of Refractive State Determination Of Refractive State 43417 08/14 EDUARDO GONZALEZ Ophthalmological New Patient Start Comprehensive Care Ophthalmological New Patient Start Comprehensive Care 81000 08/14 EDUARDO GONZALEZ Anthrax Vaccine, For Subcutaneous Use 03/12 EHSAN LOVE [facility] Immunization Administration By Injection, One Vaccine Immunization Administration By Injection, One Vaccine 14939 03/07 [facility] Influenza Virus Vaccine Intranasal Live Attenuated 01/30 [facility] Immunization Administration By Injection, Each Additional Vaccine 01/30 [facility] Immunization Administration By Injection, One Vaccine Immunization Administration By Injection, One Vaccine 58283 01/30 [facility] Typhoid Vaccine Vi Capsular Polysaccharide, For Intramus Use Typhoid Vaccine Vi Capsular Polysaccharide, For Intramus Use 92820 12/17 JAVIERELMER AYALA [facility] Hepatitis A And Hepatitis B (Intramuscular Use) Adult Dosage Hepatitis A And Hepatitis B (Intramuscular Use) Adult Dosage 19762 12/17 JAVIERELMER AYALA [facility] Immunization Administration By Injection, Each Additional Vaccine 12/17 [facility] [place] Immunization Administration By Injection, One Vaccine Immunization Administration By Injection, One Vaccine 88451 12/17 JAVIERELMER AYALA [facility] Physician Supervised Injection Intramuscular Antibiotic Physician Supervised Injection Intramuscular Antibiotic 00619 09/27 EFRAÍN CORONEL [facility] Influenza Split Virus Vaccine IM Preserv Free 0.5mL Dosage Quadrivalent Influenza Split Virus Vaccine IM Preserv Free 0.5mL Dosage Quadrivalent 25995 TIMBO SANTANA Influenza, Inj., quad., preservative free (Afluria); Series #: 1; 0.5 mL; IM; Left Arm; Mfg: Seqirus; Lot: [id number]; VIS given (Tracy: 11/17/2018). DoD Immunization Administration By Injection, One Vaccine Immunization Administration By Injection, One Vaccine 45451 TIMBO SANTANA [facility] Audiogram (Screening) Audiogram (Screening) 35130 VALENCIA HUNT [facility] Ophthalmological New Patient Start Comprehensive Care Ophthalmological New Patient Start Comprehensive Care 63444 FAYE ESCALONA Determination Of Refractive State Determination Of Refractive State 83897 FAYE ESCALONA Spectacles Services Fitting Monofocal Except For Aphakia Spectacles Services Fitting Monofocal Except For Aphakia 52941 FAYE ESCALONA Prescription And Fitting Bilateral Corneal Lenses (Not For Aphakia) Prescription And Fitting Bilateral Corneal Lenses (Not For Aphakia) 81569 IQRAFAYE Katz BLAISE DoD Vaccine SARS-CoV-2 mRNA-LNP Kali Protein Preservative Free 30mcg/0.3mL Diluent Reconstituted IM Vaccine SARS-CoV-2 mRNA-LNP Kali Protein Preservative Free 30mcg/0.3mL [place] [address] IRIS SCOTTSoo COVID-19 Pfizer (COMIRNATY); Series #: 2; 0.3 mL; IM; Left Arm; Mfg: [employer], Knodium; Lot: [id number]. DoD Vacc SARS-CoV-2 mRNA-LNP Kali Protein Preservative Free 30mcg/0.3mL Diluent Reconstituted IM Second Dose Vacc SARS-CoV-2 mRNA-LNP Kali Protein Preservative Free 30mcg/0.3mL Diluent Reconstituted IM Second Dose 0002A IRIS SCOTT NMN DoD Influenza Split Virus Vaccine IM Preserv Free 0.5mL Dosage Quadrivalent Influenza Split Virus Vaccine IM Preserv Free 0.5mL Dosage Quadrivalent 26134 SAMI HENRY Influenza, Inj., quad., preservative free (FluLaval); Series #: 1; 0.5 mL; IM; Left Arm; Mfg: Winkcam; Lot: [id number]. [facility] Psychometric Neuropsych Testing Battery Admin By Computer Psychometric Neuropsych Testing Battery Admin By Computer 18738 MONIQUE SMITH [facility] Threshold Audiogram (Pure Tone) Automated Threshold Audiogram (Pure Tone) Automated 0208T LEANA NAQVI [facility] Patient education, not otherwise cla ified, non-physician provider, group, per se ion LEANA NAQVI [facility] Social History Combined list of available smoking, tobacco, and other social history from Department of Defense and Veterans Affairs facilities. Social History Type Response Date Comment [facility] e Male 12/22/2019 Ambulatory Pha rmacy Sexual Orientation Ambula tory Pharmacy Gender identity Ambulator y Pharmacy This section is an empty soc ial history section. DoD Assessment and Plan Combined list of future care activities from Department of Defense and Veterans Affairs facilities (e.g., assessment and plan notes, appointments, orders, and referrals). Additional future care activities may be listed in the Plan of Care section. 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 All patient concerns addressed and all appropriate testing and screenings completed. A medical follow up?is not required?patient may follow up as needed. ? ? Duty Status: ?Full Duty? ? Rome Garzon C, IDC, N Guy LCPO CLB-24, 2D MLG ? All preceding documentation is in reference to the original date/time of the scheduled appointment. ?05/20/22 11:15:01 ? ? Extracted from:Title: Eye Care Office Visit Note Author: JERI ARAUZ OD Date: 01/15/22 1.?Encounter for examination of eyes and vision with abnormal findings Good overall?ocular health with dilated fundus exam.?recommend sunglasses when outside. May use AT/WC prn. Monitor 12 mo 2.?Myopia, bilateral Subjective rx given for ftw.??See SRTS for frame information.?ordered x 2. ? Pt unsure?whether?he is satisfied with vision with CLs; pt?can try them out for 2 wks, if doesn't like, recommend [place]-town CLF.?Finalized CL RX and educated on wear and safety. ? Discussed caveats for CRS including in the future losing near boost of?uncorrected myopia; and borderline changes to Rx stability. Pt will hold off for now. ?Diagnosis: ?1. ?Encounter for examination of eyes and vision with abnormal findings ?Comment:?Ordered:??Rx+Fitg C-Lens Supvj Crnl Lens Ou Xcpt Aphk 24829; 01/15/2022 09:07:00 EDT ? Determination Refractive State 61069; 01/15/2022 09:07:00 EDT ? Fitting Spectacles Xcpt Aphakia Monofocal 35354; 01/15/2022 09:07:00 EDT, 2 ? Ophthalmological Medical Xm&Eval Compre New Pt 1/> Vst 88103; 01/15/2022 09:07:00 EDT ?Diagnosis: ?2. ?Myopia, bilateral ?Comment:?Ordered:??Rx+Fitg C-Lens Supvj Crnl Lens Ou Xcpt Aphk 94697; 01/15/2022 09:07:00 EDT ? Determination Refractive State 60935; 01/15/2022 09:07:00 EDT ? Fitting Spectacles Xcpt Aphakia Monofocal 33058; 01/15/2022 09:07:00 EDT, 2 ? Ophthalmological Medical Xm&Eval Compre New Pt 1/> Vst 68671; 01/15/2022 09:07:00 EDT ? End of Orders ? Extracted from:Title: Office Clinic Note Author: MIAH DOOLEY Date: 01/06/22 Hyperlipidemia continue with current meds and dosage and follow up in 1 year for labs and monitoring. Hypertension Continue current meds and plan. ? Electronic record reviewed and certified.?Patient interview completed via?in person visit.?No medical, mental health, or social concerns identified.?USPSTF A and B level recommendations reviewed for age and sex. All patient concerns addressed and all appropriate testing and screenings completed. Patient informed?of all testing ordered and how to compelte these tests.?A medical follow up?is not required?patient may follow up as needed. ? ? Duty Status:??Full Duty?? Diagnosis/plan as well as return and emergency precautions were discussed with patient. Patient voiced understanding to all. All questions answered. ? ? Avel Dooley PA-C, LT, MSC, [facility] Surgeon CLB-24, 2D MLG Physician [facility] Caretaker ? All preceding documentation is in reference to the original date/time of the scheduled appointment. ?07/02/22 16:58:01 Extracted from:Title: Office Clinic Note Author: SHAN WAGNER DO Date: 10/15/21 1.?Hypertension BP on manual still elevated. Stop HCTZ and increase lisinopril. He wants to minimize the number of pills that he takes because he is worried that he will become non-compliant with therapy. Take home BP logs and bring them to clinic. F/u in 3 months or sooner if needed. BMP unremarkable. Ordered: lisinopril(lisinopril 30 mg oral tablet), 1 tab(s), Oral, Daily, for blood pressure, # 90 tab(s), 3 total refill(s), Maintenance, 1 tab(s) Oral Daily,Instr:for blood pressure, Pharmacy: [facility] [Not filled] ? 2.?Hyperlipidemia Start Statin and discussed lifestyle modification. Lipid profile reviewed in detail w/ SVM. Ordered: lisinopril(lisinopril 30 mg oral tablet), 1 tab(s), Oral, Daily, for blood pressure, # 90 tab(s), 3 total refill(s), Maintenance, 1 tab(s) Oral Daily,Instr:for blood pressure, Pharmacy: [facility] [Not filled] ? Orders: atorvastatin(Lipitor 40 mg oral tablet), 1 tab(s), Oral, Daily, for cholesterol, # 90 tab(s), 3 total refill(s), Maintenance, 1 tab(s) Oral Daily,Instr:for cholesterol, Pharmacy: [facility] [Not filled] Extracted from:Title: Office Clinic Note- Essential Hypertension Author: ERIC GOODMAN MD Date: 09/15/21 1.?Essential (primary) hypertension Reinitiating Lisinopril as pt reported benefit, will follow up in?3 days for BP check.? Will plan on initiating second?medicine in 1 week, HCTZ 12.5mg.? Will obtain labs to work up essential htn.? Will additionally get CXR given reports of SOB since 2019 and pulse ox of 95%.?Order placed for holter monitor to?work up palpitations.?Will provide LLD for 60 days to provide time to complete work up and control BP. Do not recommend completion of PFT at this time, pt may complete once BP is controlled.? Strict return precautions reviewed with pt. Pt voiced understanding of plan and had no further questions at this time. Ordered: hydroCHLOROthiazide(hydroCHLOROthi azide 12.5 mg oral tablet), 1 tab(s), Oral, Daily, for blood pressure, # 90 tab(s), 0 total refill(s), Maintenance, 1 tab(s) Oral Daily,Instr:for blood pressure, Pharmacy: [facility] [Not filled] lisinopril(lisinopril 10 mg oral tablet), 1 tab(s), Oral, Daily, for blood pressure, # 90 tab(s), 3 total refill(s), Maintenance, 1 tab(s) Oral Daily,Instr:for blood pressure, Pharmacy: [facility] [Federal Rx: #90 last filled 09/15/21] Basic Metabolic Panel CBC w/ Diff Hemoglobin A1c Hepatic Function Panel Protein/Creatinine Ratio, Urine Thyroid Panel Urinalysis Microscopic Referral Request 2.0 ? Orders: *Differential Automated *Glomerular Filtration Rate, Estimated XR Chest 2 Views 04/19/2024 Ambulatory Pharmacy Functional Status Combined list of recent functional and cognitive assessments recorded at Department of Defense and Veterans Affairs (VA).VA Functional [place] Measurement (FIM) Scale: 1 = Total Assistance (Subject = 0% +), 2 = Maximal Assistance (Subject = 25% +), 3 = Moderate Assistance (Subject = 50% +), 4 = Minimal Assistance (Subject = 75% +), 5 = Supervision, 6 = Modified [place] (Device), 7 = Complete [place] (Timely, Safely). Assessment Date/Time Source Assessment Type Assessment Skill Assessment Score Assessment Details No data available for this section
--- OUTSIDE RECORDS SUMMARY | 2024-04-19 08:06 | XMS_ITS | Continuity of Care Document ---
Author Organization [facility] Address [address] [place] [address] Phone Care Team Providers Care Blown Film Extrusion Operator Name Role Phone Mary Kate Tabor MD Unavailable Unavailable Advance Directives Directive Yes / No Effective Date File Name No Information Encounters Encounter Description Practice Location Reason(s) For Visit Diagnoses Date Provider Providers Copied on Encounter [facility], [address] [place], [place], [facility], tel:[phone] [facility] No Information Sharona Hartmann. [address] [place] [address], [facility], [place]. tel:[phone] Family History Family Member Type Diagnosis Age At Onset No Information Payers Payer name Insurance type Covered green party ID Authoriza tion(s) No Information Social History Type Description Quantity Date Captured Comments Sex Male Smoking Status No Information Chief Complaint And Reason For Visit No Information Reason For Referral Reason For Referral No Information History Of Present Illness Encounter Date Complaint History Of Prese nt Illness No Information Functional Status Date Functional Assessmen t No Information Instructions Date Instruction Additional Infor mation No Information Assessments Type Assessment Date No Information Patient Care Teams Name Effective Dates (start - stop) Status Members No Information
[2024-04-19 08:12] VITALS: BP 134/80; PULSE 94; TEMP 36.8; O2SAT 94; BMI 32.1
--- NOTE | 2024-04-19 08:12 | MHC.OFFWIV ---
Intake Vital Signs 04/19/24 08:12 Height 6 ft 2 in Weight 250 lb BMI 32.1 BP 134/80 Blood Pressure Location Lt brachial Position Sitting Pulse 94 Pulse Source Pulse Oximeter Temp 98.3 F Temp Source Oral Pulse Oximetry (%) 94 Oxygen Delivery Method Room Air Intake Visit Reasons: EP Back/stomach pain Intake Note: Patient here for back and stomach pain which has been present for 2 days. Patient Tobacco Use Status: Former Tobacco user Allergies No Known Allergies Allergy (Verified 04/19/24 08:25) Do you need a note to return to daycare/school/sports/work: Yes HPI HPI Comments History of Present Illness Details History of Present Illness - The patient is a 38-year-old male presenting with abdominal pain and lower back pain. - Describes chronic lower back pain exacerbated in the past two mornings, with bilateral radiating pain to the buttocks and down both legs. - Abdominal symptoms described as fullness and bloating with rapid satiety, noted to have begun about a month ago, persisting through the holiday period. - No accompanying nausea, vomiting, or diarrhea associated with the abdominal pain. - Reports previous relapse into heavy alcohol use. - Denies recent unintended weight loss, in fact states he has had weight gain. - Previous imaging, including abdominal ultrasound, conducted in June due to concerns about alcohol-related issues, found no conclusive pathologies at that time. Physical Exam General: Cooperative, healthy appearing, comfortable, no acute distress and well developed Orientation: Patient oriented x3 Limitations: No limitations Head: Normal to inspection Ears: Hearing grossly normal bilaterally Nose: Normal external nose present Face and sinus: Normal facial exam Eyes: Appearance normal, both eyes and all related structures Neck: Normal visual inspection and Yes full ROM Respiratory: Normal respiratory effort and able to speak in complete sentences. GI: normal bs, soft, TTP in RLQ, negative Wagner's Back spine: + straight leg bilat Skin: No rashes or lesions noted Neuro: Patient oriented x3 Extremities: Normal to inspection [facility] Social History Housing: Other Housing Other:: [facility] Patient Tobacco Use Status: Former Tobacco user e-Cigarette/Vaping Use: Never Used service: Yes Current occupational status: employed Cognitive needs: No Hearing needs: No Vision needs: Yes (Patient wears glasses.) Physical Exam Vital Signs: Last Vital Signs Temp 98.3 F 04/19/24 08:12 Pulse 94 04/19/24 08:12 BP 134/80 04/19/24 08:12 Pulse Ox 94 04/19/24 08:12 Oxygen Delivery Method Room Air 04/19/24 08:12 BMI result Body Mass Index 32.1 Assessment & Plan Assessment & Plan (1) Abdominal pain: Code(s): R10.9 - Unspecified abdominal pain Qualifiers: Abdominal location: upper abdomen, unspecified Qualified Code(s): R10.10 - Upper abdominal pain, unspecified Plan: The current presentation suggests a combination of lower back pain with suspected sciatica and abdominal pain and bloating and early satiety that could be appendicitis, pancreatitis or another acute intra-abdominal condition. For the suspected sciatica, a course of steroids has been prescribed, with avoidance of NSAIDs recommended due to the potential risk of bleeding (shakila with heavy etoh history). I advised the patient to seek emergency care where a CT scan and laboratory tests will further evaluate the cause of abdominal pain, considering possibilities such as appendicitis, pancreatitis or complications related to recent alcohol consumption. The patient has been counseled regarding these potential conditions and the rationale for emergency evaluation. Further treatment will depend on diagnostic findings from the emergency department's assessment. Patient should also follow up with his PCP for h pylori testing if all is negative in the ED. [place] [facility] with expect. Patient was informed and verbally consented to the use of an ambient scribe for clinic note documentation during this visit. (2) Sciatica: Code(s): M54.30 - Sciatica, unspecified side Qualifiers: Laterality: bilateral Qualified Code(s): M54.31 - Sciatica, right side; M54.32 - Sciatica, left side Plan: as above Medications: New prednisone 40 mg (2 x 20 mg) PO DAILY 10 tabs 0RF Coding Level of Care Code Est Pt Level 5 (97211) Diagnoses Pain of upper abdomen R10.10 Abdominal location: upper abdomen, unspecified Bilateral sciatica M54.31; M54.32 Laterality: bilateral
== END 2024-04-19 08:53 | disposition home or self-care (01) ==
PROVIDERS: PCP Family Medicine; Visit Provider Physician Assistant
DX: R10.10 Upper abdominal pain, unspecified (principal); M54.31 Sciatica, right side; M54.32 Sciatica, left side

== ENCOUNTER → 2024-04-19 08:02 | Outpatient (BNVA) | payer OTHER, SELFPAY | PROVIDERS: PCP Family Medicine; Visit Provider Physician Assistant | DX: R10.10 Upper abdominal pain, unspecified (principal); M54.31 Sciatica, right side; M54.32 Sciatica, left side | CPT/HCPCS: 99212 ==

== ENCOUNTER 2024-04-19 09:01 | Emergency (ER) | payer OTHER, SELFPAY ==
--- NOTE | ~2024-04-19 | CT_ITS ---
EXAMINATION: CT ABDOMEN AND PELVIS WITH CONTRAST CLINICAL INFORMATION: Abdominal pain. No additional clinical information provided. COMPARISON: None available. TECHNIQUE: Multidetector volumetric images were obtained from the superior aspect of the liver through the pubic symphysis following administration 85 mL of Omnipaque 350 intravenous contrast. Sagittal and coronal reformatted images were obtained on the technologist's workstation. Oral contrast: No This CT examination was performed using dose optimization techniques as appropriate, variously including the following: *Automated exposure control *Adjustment of mA and/or kV according to patient size (this includes techniques or standardized protocols for targeted exams where dose is matched to indication/reason for exam; i.e. extremities or head) *Use of iterative reconstruction technique FINDINGS: LUNG BASES: -Lung bases demonstrate numerous predominantly peripherally oriented groundglass subsegmental opacities in both lung bases, highly suggestive of atypical pneumonia. There are no effusions. The heart size is normal. Probable small type I hiatus hernia. LIVER, GALLBLADDER, AND BILIARY TREE: The liver is normal in size and shape. There is mild diffuse hypoattenuation suggesting steatosis. No focal hepatic lesion or biliary ductal dilatation is present. The gallbladder is unremarkable with no evidence of radiopaque gallstones, gallbladder wall thickening, or obvious pericholecystic inflammatory changes. PANCREAS: Unremarkable. SPLEEN: Unremarkable. ADRENAL GLANDS: Unremarkable. KIDNEYS AND URETERS: The kidneys are normal in size, shape, and attenuation. Tiny subcentimeter cysts bilaterally. No hydronephrosis, hydroureter, or obstructing calculi seen. No perinephric stranding. Findings suspicious for a 2 mm nonobstructing calculus mid to lower pole left kidney. Ureters are nondilated. BLADDER: Unremarkable. GASTROINTESTINAL TRACT: -The stomach, duodenum, and small bowel are normal. No inflammatory changes or obstruction. -Normal appendix visualized. -Colon is normal in course, caliber, and appearance without significant diverticular disease, wall thickening, or inflammation. ABDOMINAL WALL: -No significant hernia is appreciated. -Mild gynecomastia noted. LYMPH NODES: -No abnormal lymphadenopathy. VASCULAR: Unremarkable. PELVIC VISCERA: The prostate and seminal vesicles are unremarkable. OSSEOUS STRUCTURES: -There are no suspicious lytic or blastic bone lesions. -Degenerative disc changes L5-S1 with vacuum phenomenon. CT/CT abdomen pelvis w IV con IMPRESSION: 1. There is no acute abnormality in the abdomen or pelvis. 2. Numerous peripheral subsegmental groundglass opacities within the lung bases suggesting atypical, likely viral pneumonia. 3. See the body the report for additional ancillary findings. Fleischner guidelines were followed. Electronically signed by: Rufino Stafford MD 04/19/2024 11:58 AM MARY ANNE
--- OUTSIDE RECORDS SUMMARY | 2024-04-19 09:22 | XMS_ITS | Continuity of Care Document ---
Author Organization [facility] Address [address] [place] [address] Phone Care Team Providers Care Evs Manager Name Role Phone Mary Kate Tabor MD Unavailable Unavailable Advance Directives Directive Yes / No Effective Date File Name No Information Encounters Encounter Description Practice Location Reason(s) For Visit Diagnoses Date Provider Providers Copied on Encounter [facility], [address], [place], [facility], tel:[phone] [facility] No Information Sharona Hartmann. [address] [place] [address], [facility], [place]. tel:[phone] Family History Family Member Type Diagnosis Age At Onset No Information Payers Payer name Insurance type Covered libertarian ID Authoriza tion(s) No Information Social History [...]
[2024-04-19 09:28] VITALS: BP 145/95; PULSE 82; RESP 18; TEMP 37.1; O2SAT 97; BMI 32.1
[2024-04-19 09:48] LABS: MANUAL DIFF FLAG NO
[2024-04-19 09:50] LABS: Basophils Percent Auto 0.5 % (0-2); Eosinophils Absolute Auto 0.2 X10*3/uL (0.0-0.4); Eosinophils Percent Auto 2.7 % (0-4); Hematocrit 45.3 % (42.0-52.0); Hemoglobin 16.1 g/dl (14.0-18.0); Imm Gran Abs Auto 0.03 X10*3/uL (0.00-0.03); Imm Gran Pct Auto 0.4 % (0.0-0.4); Lymphocytes Absolute Auto 1.8 X10*3/uL (1.2-4.9); Lymphocytes Percent Auto 23.6 % (20-40); Mean Corpuscular HGB Conc 35.5 g/dl (31.0-36.0); Mean Corpuscular Hemoglobin 29.4 pg (27.0-33.0); Mean Corpuscular Volume 82.7 fL (80.0-98.0); Mean Platelet Volume 9.3 fL (9.4-12.4); Monocytes Absolute Auto 0.8 X10*3/uL (0.1-1.2); Monocytes Percent Auto 10.4 % (2-11); Neutrophils Absolute Auto 4.9 x10*3/uL (2.0-8.3); Neutrophils Percent Auto 62.4 % (45-73); Platelet Count 253 X10*3/uL (160-400); Red Blood Count 5.48 X10*6/uL (4.60-5.80); Red Cell Distribution Width 12.8 % (11.0-16.0); White Blood Count 7.8 X10*3/uL (4.8-10.8)
[2024-04-19 09:54] LABS: Appearance Urine Clear; Color Urine Dark Yellow; Glucose Urine UA Negative (Negative); Leukocyte Esterase Urine Negative (Negative); Nitrite Urine Negative (Negative); Specific Gravity - Urine 1.025 (1.005-1.025); UMIC TRIGGER UACC YES; Urine Blood Negative (Negative); Urine Ketones 15 mg/dL (Negative); Urine Protein 30 (1+) mg/dL (Neg-Trace)
[2024-04-19 09:57] LABS: Bacteria Urine None Seen (None Seen); Hyaline Casts Urine 0-2 /LPF (0-2); RBC Urine 0-2 /HPF (0-2); Squamous Epithelial Cell Urine 0-2 /HPF (0-2); WBC Urine 0-5 /HPF (0-5)
[2024-04-19 10:08] LABS: Albumin Level 4.6 g/dL (3.5-5.0); Alkaline Phosphatase 66 U/L (39-117); Anion Gap 11 (12-20); Aspartate Amino Transferase 42 U/L (5-37); Bilirubin Direct 0.1 mg/dL (0.0-0.5); Bilirubin Total 0.6 mg/dL (0.0-1.0); Blood Urea Nitrogen 11 mg/dL (9-16); Calcium 9.3 mg/dL (8.4-10.2); Carbon Dioxide 27 mmol/L (22-29); Chloride 108 mmol/L (96-108); Creatinine Clr Calc Pharmacy 135.4; Estimated Glomerular Filt Rate > 60; Glucose Random 100 mg/dL (60-115); Lipase 12 U/L (8-78); Potassium 4.3 mmol/L (3.3-5.1); Sodium 142 mmol/L (135-145); Total Protein 8.2 g/dL (6.5-8.0)
--- OUTSIDE RECORDS SUMMARY | 2024-04-19 10:26 | XMS_ITS | Continuity of Care Document ---
Author Organization [facility] Address [address] [place] [address] Phone Care Team Providers Care Flange Turner Name Role Phone Mary Kate Tabor MD Unavailable Unavailable Advance Directives Directive Yes / No Effective Date File Name No Information Encounters Encounter Description Practice Location Reason(s) For Visit Diagnoses Date Provider Providers Copied on Encounter [facility], [address], [place], [facility], tel:[phone] [facility] No Information Sharona Hartmann. [address] [place] [address], [facility], [place]. tel:[phone] Family History Family Member Type Diagnosis Age At Onset No Information Payers Payer name Insurance type Covered democrat ID Authoriza tion(s) No Information Social History [...]
[2024-04-19 10:30] LABS: Alanine Aminotransferase 68 U/L (0-40)
--- NOTE | 2024-04-19 10:41 | ECG_ITS ---
Test Reason : ABD PAIN Blood Pressure : */* mmHG Vent. Rate : 70 BPM Atrial Rate : 70 BPM P-R Int : 136 ms QRS Dur : 80 ms QT Int : 380 ms P-R-T Axes : 24 24 12 degrees QTcB Int : 410 ms Normal sinus rhythm Normal ECG No previous ECGs available Referred By: Julien Alatorre Electronically Signed By: Mauro Rice
[2024-04-19] MEDS: Famotidine/PF 20 MG/2 ML VIAL IVPUSH (11:06)
--- NOTE | 2024-04-19 11:19 | ED_ITS ---
HPI - Abdominal Pain General Chief Complaint: Abdominal Pain Stated Complaint: Abdominal Pain Time Seen by Provider: 04/19/24 10:39 Source: patient Mode of arrival: ambulatory Limitations: no limitations History of Present Illness HPI narrative: 38-year-old male presents emergency department with multiple complaints. Patient states he started drinking again he feels like he over did approximately 1 month ago and he felt like his belly became distended. Patient has been continued to drink he drinks different things every day and he can not tell me an amount. He is here today because he has had chronic back pain is currently on prednisone and he thinks his belly is causing too much pain. MD elicited complaint: abdominal pain Related Data Previous Rx's ?Medication ?Instructions ?Recorded methylcellulose (laxative) 500 mg 500 mg PO DAILY #30 tabs 03/10/23 tablet (Citrucel) sennosides 8.6 mg tablet (Natural 17.2 mg (2 x 8.6 mg) PO BEDTIME 03/10/23 Senna Laxative) constipation #60 tabs naltrexone 50 mg tablet 50 mg PO DAILY #30 tabs 04/08/23 cholecalciferol (vitamin D3) 50 50 mcg PO DAILY 90 days #90 caps 06/09/23 mcg (2,000 unit) capsule atorvastatin 40 mg tablet 40 mg PO DAILY 90 days #90 tabs 12/14/23 lisinopril 30 mg tablet 30 mg PO DAILY 90 days #90 tabs 12/14/23 trazodone 50 mg tablet 50 mg PO BEDTIME PRN sleep #14 tabs 12/14/23 prednisone 20 mg tablet 40 mg (2 x 20 mg) PO DAILY #10 tabs 04/19/24 Allergies Allergy/AdvReac Type Severity Reaction Status Date / Time No Known Allergies Allergy Verified 04/19/24 09:30 Review of Systems Review of Systems Review of systems: General: Patient denies any fever chills recent illness or falls Musculoskeletal: Denies back pain or body aches or other injuries HEENT: denies headache, runny nose, ear pain Respiratory: denies shortness of breath, cough Cardiovascular: no chest pain or palpitations : denies dysuria, frequency Abdomen: no nausea vomiting denies abdominal pain Extremities: no swelling, no pain Skin: no diaphoresis Yes all other systems are reviewed and are negative [facility] Social History Social History Housing: Other 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 Patient Tobacco Use Status: Former Tobacco user e-Cigarette/Vaping Use: Never Used Advance Directives: No Advance Directives Information Provided: Yes Do you have a plan to hurt others: No Plan service: Yes Current occupational status: employed Cognitive needs: No Hearing needs: No Vision needs: Yes (Patient wears glasses.) Physical Exam ED Vital Signs: Vital Signs - 24 hr 04/19/24 09:28 Temperature 98.8 F Pulse Rate 82 Respiratory Rate 18 Blood Pressure 145/95 H Pulse Oximetry 97 Oxygen Delivery Method Room Air BMI result Body Mass Index 32.1 General: Well-appearing well-nourished in no signs of distress HEENT: Normocephalic atraumatic Neck: No signs of JVD, no masses no tenderness or lymphadenopathy Cardiovascular: Regular rate and rhythm Respiratory: Clear to auscultation bilaterally Abdomen: Soft nontender no masses Extremities: Normal pedal pulses no signs of edema Skin: Dry warm no rashes Back: No tenderness full ROM Course Course Course Narrative: Patient looks well no issues while here labs and CT scan done are all unremarkable I will discharge the patient home with close PCP follow up patient educated on alcohol cessation. Medical Decision Making Medical Decision Making [facility] Narrative: patient looks well he is already on prednisone taper I will give him some Tylenol and toradol Differential Diagnosis Differential Diagnoses: The differential diagnosis associated with the presentation includes Kidney stone abdominal pain cholecystitis alcohol abuse dehydration electrolyte abnormality Lab Data 04/19/24 09:41 04/19/24 09:41 Labs: Lab Results 04/19/24 Range/Units 09:41 WBC 7.8 (4.8-10.8) X10*3/uL RBC 5.48 (4.60-5.80) X10*6/uL Hgb 16.1 (14.0-18.0) g/dl Hct 45.3 (42.0-52.0) % MCV 82.7 (80.0-98.0) fL MCH 29.4 (27.0-33.0) pg MCHC 35.5 (31.0-36.0) g/dl RDW 12.8 (11.0-16.0) % Plt Count 253 (160-400) X10*3/uL MPV 9.3 L (9.4-12.4) fL Immature Gran % (Auto) 0.4 (0.0-0.4) % Neut % (Auto) 62.4 (45-73) % Lymph % (Auto) 23.6 (20-40) % [place] % (Auto) 10.4 (2-11) % Eos % (Auto) 2.7 (0-4) % Baso % (Auto) 0.5 (0-2) % Lymph # (Auto) 1.8 (1.2-4.9) X10*3/uL [place] # (Auto) 0.8 (0.1-1.2) X10*3/uL Eos # (Auto) 0.2 (0.0-0.4) X10*3/uL Baso # (Auto) 0.0 (0.0-0.2) X10*3/uL Abs Immat Gran (auto) 0.03 (0.00-0.03) X10*3/uL Absolute Neuts (auto) 4.9 (2.0-8.3) x10*3/uL Absolute Nucleated RBC 0.000 (0.0-0.012) X10*3/uL Nucleated RBC % (auto) 0.0 (0.0-0.2) /100WBC Sodium 142 (135-145) mmol/L Potassium 4.3 (3.3-5.1) mmol/L Chloride 108 (96-108) mmol/L Carbon Dioxide 27 (22-29) mmol/L Anion Gap 11 L (12-20) BUN 11 (9-16) mg/dL Creatinine 1.01 (0.5-1.4) mg/dL Estim Creat Clear Calc 135.4 Estimated GFR > 60 Random Glucose 100 (60-115) mg/dL Calcium 9.3 (8.4-10.2) mg/dL Total Bilirubin 0.6 (0.0-1.0) mg/dL Direct Bilirubin 0.1 (0.0-0.5) mg/dL AST 42 H (5-37) U/L ALT 68 H (0-40) U/L Alkaline Phosphatase 66 (39-117) U/L Total Protein 8.2 H (6.5-8.0) g/dL Albumin 4.6 (3.5-5.0) g/dL Lipase 12 (8-78) U/L Urine Color Dark Yellow Urine Appearance Clear Urine pH 6.0 (5.0-9.0) Ur Specific [place] 1.025 (1.005-1.025) Urine Protein 30 (1+) H (Neg-Trace) mg/dL Urine Glucose (UA) Negative (Negative) mg/dL Urine Ketones 15 (Negative) mg/dL Urine Blood Negative (Negative) Urine Nitrite Negative (Negative) Ur Leukocyte Esterase Negative (Negative) Urine RBC 0-2 (0-2) /HPF Urine WBC 0-5 (0-5) /HPF Ur Squamous Epith Cells 0-2 (0-2) /HPF Urine Bacteria None Seen (None Seen) Hyaline Casts 0-2 (0-2) /LPF Ethyl Alcohol 15 mg/dL Medications Administered Discontinued Medications Generic Name Dose Route Start Last Admin Trade Name Freq PRN Reason Stop Dose Admin Famotidine 20 mg 04/19/24 10:41 04/19/24 11:06 Famotidine/Pf 20 Mg/2 Ml Vial IVPUSH 04/19/24 10:42 20 mg ONCE ONE Administration Acetaminophen 1,000 mg in 100 mls @ 400 mls/hr 04/19/24 11:21 04/19/24 11:31 Ofirmev IV 04/19/24 11:35 400 mls/hr ONCE ONE Administration Iohexol 85 ml 04/19/24 11:24 04/19/24 11:24 Iohexol 350 Mg/Ml 100 Ml Infus..Btl IV 04/19/24 11:25 85 ml ONCE ONE Administration Ketorolac Tromethamine 15 mg 04/19/24 11:21 04/19/24 11:31 Ketorolac Tromethamine 15 Mg/Ml Vial IVPUSH 04/19/24 11:22 15 mg ONCE ONE Administration Discharge Plan Discharge Clinical Impression: Alcohol use disorder, moderate, dependence Abdominal pain Qualifiers: Abdominal location: upper abdomen, unspecified Qualified Code(s): R10.10 - Upper abdominal pain, unspecified Patient Disposition: Home, Self-Care Instructions: Abdominal Pain (ED), Abuse of Alcohol (DC) Additional Instructions: You were seen today for alcohol abuse and abdominal pain. You had labs and a CT done which were all unremarkable. Please call follow up with her doctor if you have any other concerns please return to the ER Prescriptions: No Action atorvastatin 40 mg tablet 40 mg PO DAILY 90 Days Qty: 90 3RF lisinopril 30 mg tablet 30 mg PO DAILY 90 Days Qty: 90 3RF trazodone 50 mg tablet 50 mg PO BEDTIME PRN (Reason: sleep) Qty: 14 0RF Citrucel 500 mg tablet 500 mg PO DAILY Qty: 30 2RF Rx Instructions: take it with full glass of water sennosides [Natural Senna Laxative] 8.6 mg tablet 17.2 mg PO BEDTIME Qty: 60 3RF naltrexone 50 mg tablet 50 mg PO DAILY Qty: 30 1RF Rx Instructions: Take half a tab daily for three days, then increase to one tab daily. cholecalciferol (vitamin D3) 50 mcg (2,000 unit) capsule 50 mcg PO DAILY 90 Days Qty: 90 1RF prednisone 20 mg tablet 40 mg PO DAILY Qty: 10 0RF Print Language: Burkinan
[2024-04-19 11:21] LABS: Ethanol 15 mg/dL
[2024-04-19] MEDS: iohexoL 350 MG/ML 100 ML INFUS..BTL 85 ML IV (11:24)
[2024-04-19] MEDS: Acetaminophen 1,000 MG/100 ML PIGGYBACK 400 MG IV (11:31)
[2024-04-19] MEDS: Ketorolac Tromethamine 15 MG/ML VIAL IVPUSH (11:31)
[2024-04-19 13:03] VITALS: BP 136/88; PULSE 80; RESP 18; TEMP 37.1; O2SAT 98
[2024-04-19 13:04] VITALS: BP 136/88; PULSE 80; RESP 18; TEMP 37.1; O2SAT 98
== END 2024-04-19 13:04 | disposition home or self-care (01) ==
PROVIDERS: Emergency Provider Student in an Organized Health Care Education/Training Program; PCP Family Medicine
DX: F10.20 Alcohol dependence, uncomplicated (principal); R10.2 Pelvic and perineal pain; R10.13 Epigastric pain; M54.50 Low back pain, unspecified; Y90.0 Blood alcohol level of less than 20 mg/100 ml; Z87.891 Personal history of nicotine dependence; Z79.899 Other long term (current) drug therapy; Z51.81 Encounter for therapeutic drug level monitoring
CPT/HCPCS: 36415; 74177; 80053; 80307; 81001; 82248; 83690; 85025; 93005; 96365; 96375; 99284; 99285; J0131; J1885; Q9967

== ENCOUNTER → 2024-04-19 10:41 | Outpatient (BNV) | payer OTHER, SELFPAY | PROVIDERS: Emergency Provider Student in an Organized Health Care Education/Training Program; PCP Family Medicine; Visit Provider Internal Medicine Cardiovascular Disease | DX: R10.9 Unspecified abdominal pain (principal) | CPT/HCPCS: 93010 ==

== ENCOUNTER → 2024-04-19 10:42 | Outpatient (BNV) | payer OTHER, SELFPAY | PROVIDERS: Emergency Provider Student in an Organized Health Care Education/Training Program; PCP Family Medicine; Visit Provider Radiology Diagnostic Radiology | DX: J18.9 Pneumonia, unspecified organism (principal); N20.0 Calculus of kidney | CPT/HCPCS: 74177 ==